=== PATIENT | male | born 1955 | race Caucasian/White ===

== ENCOUNTER 2021-04-28 14:14 | Inpatient (IN) ==
[2021-04-28] MEDS ORDERED: NITROGLYCERIN 2% OINTMENT 30GM TUBE EXT STA (14:34)
--- NOTE | 2021-04-28 14:39 | Emergency Department Note ---
Impression & Plan Substernal chest pain ED Provider Note INFORMANT: Patient ED PROVIDER(S): Thomas Alves MD CHIEF COMPLAINT: Chest pain PLAN: Disposition: Admitted Condition: Good Outpatient prescription management: none Referral: None MEDICAL DECISION MAKING: Patient presented with concerning story for chest pain. He had aspirin prior to coming to the ER. Nitropaste was applied. His ECG showed a sinus bradycardia with anterior T wave inversion. His laboratory testing including troponin were negative. Chest x-ray negative. The patient had a consultation with Dr. Jean of cardiology. He would like the hospitalist admit the patient and he is going to evaluate him for possible cardiac catheterization. Consultation was made with [facility] hospitalist service. The patient was admitted for further management. Triage Nursing notes reviewed and agree them. Vital Signs: reviewed and remarkable for no significant abnormalities Differential diagnosis: Cardiac ischemia, aortic dissection, pulmonary embolism, pneumothorax, pneumonia , pericarditis, myocarditis, esophageal rupture, GERD, cholecystitis, pancreatitis, musculoskeletal, as well as other pathologies. Diagnostics interpreted by me: ECG: Twelve-lead ECG reveals sinus bradycardia 59 bpm. Anterior T wave inversions. No ST elevation. No PACs or PVCs. Cardiac Monitoring: Cardiac monitoring ordered by me: The patient was placed on continuous cardiac monitoring and observed. It revealed a normal sinus rhythm at 60 beats per minute without ectopy or evidence of dysrhythmia. Imaging studies: Chest x-ray. Findings: A chest x-ray was performed and revealed no pneumothorax, effusion, infiltrate, pulmonary edema, free air under the diaphragm, or wide mediastinum. Impression: No acute disease. HPI: The patient is a 65 year old male who presents to the Emergency Room with complaints of substernal chest pain. This started about a month ago and is intermittent. The patient also notes the following associated symptoms, nausea, dry heaves, radiating to teeth and arms. The patient has been given asa today for relieving factors. Current pain is rated as 0/10. [place] [facility] [place] for a stress and echo was abnormal. Sent to ER for concerns of ACS. Pt denies LOC, headache, fevers, chills, diaphoresis, visual changes, neck pain, breathing difficulties, vomiting, abdominal pain, back pain, melena, heydi tochezia, urinary symptoms, numbness, weakness, lymphadenopathy, rash, or other complaints. ROS: See above HPI for pertinent positives & negatives. A total of 10 systems re viewed and were otherwise negative. PAST MEDICAL HISTORY:See Below , HTN PAST SURGICAL HISTORY:See Below, FAMILY HISTORY:See Below SOCIAL HISTORY:See Below, no tobacco HOME MEDICATIONS:See Below ALLERGIES:See Below VITALS:See Below PHYSICAL EXAMINATION: GENERAL: Awake, alert, well-appearing, in no distress HENT: Normocephalic, atraumatic. Oropharynx unremarkable. EYES: Normal conjunctiva. Sclera non-icteric. NECK: Inspection normal. Non-tender. Supple. No nuchal rigidity. FROM. No masses. RESPIRATORY: Clear to auscultation. No wheezes. No rales. Normal respiratory effort. CARDIAC: Normal rate. Normal rhythm. No murmurs. No rubs. Extremities warm and well perfused. Pulses equal. No JVD. GI: Soft, non-distended. No tenderness to palpation. No rebound or guarding. No masses. RECTAL: Deferred. MUSCULOSKELETAL: Atraumatic. Chest examination reveals no tenderness. The back is symmetrical on inspection without obvious abnormality. There is no CVA tenderness to palpation. No joint edema. LOWER EXTREMITIES: Calves are equal size bilaterally and non-tender. No edema. No discoloration. NEURO: Normal sensorium. No sensory or motor deficits noted. SKIN: No rash or jaundice noted. Thomas Alves MD Past Med/Surg History Medical History Dyslipidemia, goal LDL below 70 Family history of premature CAD GERD (gastroesophageal reflux disease) Mood disorder Tobacco use Surgical History (Updated 04/28/21 @ 18:03 by Nelly Asher PA-C) Carpal tunnel syndrome History of colonoscopy Family History Other Cancer Heart disease Social History (Updated 04/28/21 @ 18:04 by Nelly Asher PA-C) Smoking Status: Current every day smoker Tobacco Type: Smokeless Tobacco (Dip or Chew) Second Hand Exposure: No; Do You Dip or Chew Tobacco: Yes; Tobacco Cessation Education Requested by Patient: No Hx Alcohol Use: No (quit 6 mo ago ) Hx Substance Use: No Preferred Language: Luxembourger Communication Ability: Effective Health Economist Required: No Beliefs That Will Affect Care: None Current Living Situation: Spouse Other Information That Helps Us Care for You: No Feels Safe at Home: Yes Safety Concerns: Feels Safe At This Time Assistive Devices: None Allergies Allergies Allergy/AdvReac Type Severity Reaction Status Date / Time No Known Allergies Allergy Verified 04/28/21 16:15 Home Meds Home Medications Medication Instructions Recorded Confirmed citalopram 10 mg PO DAILY 04/28/21 04/28/21 omeprazole 40 mg PO DAILY 04/28/21 04/28/21 Previous Rx's Medication Instructions Recorded aspirin 81 mg PO QAM #0 tab 04/28/21 atorvastatin 80 mg PO QAM #0 tab 04/28/21 lisinopril 10 mg PO QAM #0 tab 04/28/21 metoprolol tartrate 12.5 mg PO BID #0 tab 04/28/21 Results & Data (ED) Vital Signs Vital Signs - 24 hr 04/28/21 14:22 04/28/21 14:46 04/28/21 15:00 Temperature 36.5 C Temperature Source Oral Pulse Rate 61 Pulse Rate [Left Finger] 76 Pulse Rhythm Regular Pulse Strength Normal Respiratory Rate 18 18 Respiratory Effort / Characteristics Non-Labored Spontaneous Respiratory Depth Normal Respiratory Pattern Regular Blood Pressure 173/94 H Blood Pressure [Left Arm] 150/76 H Blood Pressure Mean 120 Blood Pressure Mean [Left Arm] 100 Blood Pressure Position Lying Blood Pressure Position [Left Arm] Sitting Pulse Oximetry 96 97 98 Oxygen Delivery Method Room Air Room Air Sepsis Recent Fever Within 48 Hours No Sepsis New/Unexplained Change in Mental Status No Sepsis Action Taken by Nursing No Action Required Laboratory Data Result diagrams: 04/28/21 14:30 04/28/21 14:30 Lab Results 04/28/21 04/28/21 04/28/21 Range/Units 14:30 14:30 15:00 WBC 9.79 (4.8-10.8) K/uL RBC 4.89 (4.7-6.1) M/uL Hgb 14.6 (14.0-18.0) g/dL Hct 42.7 (42-52) % MCV 87.3 (80-100) fL MCH 29.9 (25-34) pg MCHC 34.2 (32-36) g/dL RDW Std Deviation 42.7 (36.4-46.3) fL RDW Coeff of Akin 13.4 (11.5-14.5) % Plt Count 252 (130-400) K/uL MPV 9.4 (7.4-10.4) fL Immature Gran % (Auto) 0.2 % Neut % (Auto) 74.2 % Lymph % (Auto) 14.5 % [place] % (Auto) 7.4 % Eos % (Auto) 3.4 % Baso % (Auto) 0.3 % Neut # (Auto) 7.27 H (1.4-6.5) K/uL Lymph # (Auto) 1.42 (1.2-3.4) K/uL [place] # (Auto) 0.72 H (0.11-0.59) K/uL Eos # (Auto) 0.33 (0-0.5) K/uL Baso # (Auto) 0.03 (0-0.2) K/uL Immature Gran # (Auto) 0.02 (0.00-0.02) K/uL APTT 24.7 (21.0-31.0) Seconds PTT Ratio 0.9 Sodium 142 (136-145) mmol/L Potassium 4.0 (3.5-5.1) mmol/L Chloride 112 H (98-107) mmol/L Carbon Dioxide 27 (21-32) mmol/L Anion Gap 4.0 (3-11) BUN 13 (7-18) mg/dl Creatinine 0.90 (0.6-1.4) mg/dl Est Cr Clr Drug Dosing 87.6 ml/min Est GFR ( Amer) 104.2 ml/min Est GFR (Non-Af Amer) 89.9 ml/min BUN/Creatinine Ratio 14.9 (10-20) Glucose 89 (70-99) mg/dl Calcium 9.0 (8.5-10.1) mg/dl Total Bilirubin 0.7 (0.2-1) mg/dl AST 19 (15-37) U/L ALT 36 (12-78) U/L Alkaline Phosphatase 65 (45-117) U/L Troponin I < 0.015 (0-0.045) ng/ml Total Protein 6.8 (6.4-8.2) gm/dl Albumin 3.7 (3.4-5.0) gm/dl Globulin 3.1 (2.5-4.0) gm/dl Albumin/Globulin Ratio 1.2 (0.9-2) Lipase 184 (73-393) U/L COVID-19 Eval Order SARS-CoV-2 (PCR) (Negative) 04/28/21 04/28/21 Range/Units 15:08 15:08 WBC (4.8-10.8) K/uL RBC (4.7-6.1) M/uL Hgb (14.0-18.0) g/dL Hct (42-52) % MCV (80-100) fL MCH (25-34) pg MCHC (32-36) g/dL RDW Std Deviation (36.4-46.3) fL RDW Coeff of Akin (11.5-14.5) % Plt Count (130-400) K/uL MPV (7.4-10.4) fL Immature Gran % (Auto) % Neut % (Auto) % Lymph % (Auto) % [place] % (Auto) % Eos % (Auto) % Baso % (Auto) % Neut # (Auto) (1.4-6.5) K/uL Lymph # (Auto) (1.2-3.4) K/uL [place] # (Auto) (0.11-0.59) K/uL Eos # (Auto) (0-0.5) K/uL Baso # (Auto) (0-0.2) K/uL Immature Gran # (Auto) (0.00-0.02) K/uL APTT (21.0-31.0) Seconds PTT Ratio Sodium (136-145) mmol/L Potassium (3.5-5.1) mmol/L Chloride (98-107) mmol/L Carbon Dioxide (21-32) mmol/L Anion Gap (3-11) BUN (7-18) mg/dl Creatinine (0.6-1.4) mg/dl Est Cr Clr Drug Dosing ml/min Est GFR ( Amer) ml/min Est GFR (Non-Af Amer) ml/min BUN/Creatinine Ratio (10-20) Glucose (70-99) mg/dl Calcium (8.5-10.1) mg/dl Total Bilirubin (0.2-1) mg/dl AST (15-37) U/L ALT (12-78) U/L Alkaline Phosphatase (45-117) U/L Troponin I (0-0.045) ng/ml Total Protein (6.4-8.2) gm/dl Albumin (3.4-5.0) gm/dl Globulin (2.5-4.0) gm/dl Albumin/Globulin Ratio (0.9-2) Lipase (73-393) U/L COVID-19 Eval Order Covid19 at [facility] SARS-CoV-2 (PCR) NEGATIVE (Negative) Administered Medications Discontinued Medications Atorvastatin Calcium (Atorvastatin 40 Mg Tab) 80 mg PO QAM RAMBO Stop: 05/28/21 16:14 Last Admin: 04/28/21 18:33 Dose: 80 mg Documented by: [id number] Heparin Sodium/Dextrose (Heparin Iv Adult Wt-Based Standard *No* Bolus Protocol) 1 ea IV Q1H RAMBO; Protocol Stop: 05/28/21 16:59 Last Admin: 04/28/21 18:42 Dose: Not Given Documented by: [id number] Heparin Sodium/Dextrose (Heparin Sodium/Dextrose) 25,000 units in 500 mls @ 26 mls/hr IV .[id number] RAMBO; Protocol Stop: 05/28/21 17:02 Last Admin: 04/28/21 17:41 Dose: 1,300 units/hr, 26 mls/hr Documented by: [id number] Cosigned by: [id number] Nitroglycerin (Nitroglycerin 2% Ointment 30gm Tube) 1 inch EXT NOW STA Stop: 04/28/21 14:35 Last Admin: 04/28/21 14:49 Dose: 1 inch Documented by: [id number] Imaging Data Radiologist's Impression: Chest X-Ray 04/28/21 14:22 SINGLE VIEW CHEST CLINICAL HISTORY: Atypical chest pain. FINDINGS: An AP, portable, upright chest radiograph is obtained. No prior studies are available for comparison at the time of dictation. The examination is degraded by portable technique and apical lordotic positioning. The cardiomediastinal silhouette is unremarkable noting atherosclerotic calcification of the thoracic aorta. The lungs and pleural spaces are clear. No pneumothorax is seen. The bony thorax is grossly intact. IMPRESSION: No active disease in the chest. ACT 112: Negative or not required by law. Electronically signed by: Chepe Clancy M.D. 04/28/2021 2:56 PM Discharge Plan Visit Data Chief Complaint: Cardiac Assessment Stated Complaint: CARDIAC ASSESSMENT ED Provider: Thomas Alves Discharge Problem: Substernal chest pain Patient Disposition: Admitted As Inpatient Discharge Instructions Interventions: ED Discharge Assessment Last Done: 04/28/21 16:09
[2021-04-28 14:41] LABS: Basophils # (auto) 0.03 K/uL (0-0.2); Basophils % (auto) 0.3 %; Eosinophils # (auto) 0.33 K/uL (0-0.5); Eosinophils % (auto) 3.4 %; Hematocrit (blood only) 42.7 % (42-52); Hemoglobin 14.6 g/dL (14.0-18.0); Immature Granulocytes # (auto) 0.02 K/uL (0.00-0.02); Immature Granulocytes % (auto) 0.2 %; Lymphocytes # (auto) 1.42 K/uL (1.2-3.4); Lymphocytes % (auto) 14.5 %; Mean Corpuscular Hemoglobin 29.9 pg (25-34); Mean Corpuscular Hgb Conc 34.2 g/dL (32-36); Mean Corpuscular Volume 87.3 fL (80-100); Mean Platelet Volume 9.4 fL (7.4-10.4); Monocytes # (auto) 0.72 K/uL (0.11-0.59); Monocytes % (auto) 7.4 %; Neutrophils # (auto) 7.27 K/uL (1.4-6.5); Neutrophils % (auto) 74.2 %; Platelet Count 252 K/uL (130-400); RDW Coefficient of Variation 13.4 % (11.5-14.5); RDW Standard Deviation 42.7 fL (36.4-46.3); Red Blood Count 4.89 M/uL (4.7-6.1); White Blood Count 9.79 K/uL (4.8-10.8)
--- NOTE | 2021-04-28 14:58 | XRay Report ---
SINGLE VIEW CHEST CLINICAL HISTORY: Atypical chest pain. FINDINGS: An AP, portable, upright chest radiograph is obtained. No prior studies are available for c omparison at the time of dictation. The examination is degraded by portable technique and apical dwaine dotic positioning. The cardiomediastinal silhouette is unremarkable noting atherosclerotic calcificat ion of the thoracic aorta. The lungs and pleural spaces are clear. No pneumothorax is seen. The bony thorax is grossly intact. IMPRESSION: No active disease in the chest. ACT 112: Negative or not required by law. Electronically signed by: Chpee Clancy M.D. 04/28/2021 2:56 PM
[2021-04-28 14:59] LABS: Alanine Aminotransferase 36 U/L (12-78); Albumin Level 3.7 gm/dl (3.4-5.0); Aspartate Aminotransferase 19 U/L (15-37); BUN Creatinine Ratio 14.9 (10-20); Blood Urea Nitrogen 13 mg/dl (7-18); Carbon Dioxide 27 mmol/L (21-32); Chloride 112 mmol/L (98-107); Creatinine Clr Calc Pharmacy 87.6 ml/min; Est GFR (African American) 104.2 ml/min; Est GFR (Non-African American) 89.9 ml/min; Glucose 89 mg/dl (70-99); Lipase 184 U/L (73-393); Sodium 142 mmol/L (136-145)
[2021-04-28 15:04] LABS: Albumin Globulin Ratio 1.2 (0.9-2); Alkaline Phosphatase 65 U/L (45-117); Bilirubin,Total 0.7 mg/dl (0.2-1); Globulin 3.1 gm/dl (2.5-4.0); Total Protein 6.8 gm/dl (6.4-8.2); Troponin I < 0.015 ng/ml (0-0.045)
[2021-04-28 15:22] LABS: Partial Thromboplastin Ratio 0.9; Partial Thromboplastin Time 24.7 Seconds (21.0-31.0)
[2021-04-28] MEDS ORDERED: fentaNYL citrate 100 MCG/2 ML VIAL ONE (15:53)
[2021-04-28] MEDS ORDERED: niCARdipine HCL INJ 2.5 MG/ML 10 ML AMP ONE (15:53)
[2021-04-28] MEDS ORDERED: HEPARIN (PORCINE) 1000 UNIT/ML 10 ML (CATH LAB USE ONLY) ONE (15:53)
[2021-04-28] MEDS ORDERED: MIDAZOLAM HCL 1 MG/ML 2ML VIAL ONE (15:53)
[2021-04-28] MEDS ORDERED: NITROGLYCERIN/D5W 100MCG/ML 20ML SYR ONE (15:54)
--- NOTE | 2021-04-28 16:08 | Cardiology Consultation ---
Date of Consultation April 28, 2021 Assessment & Plan (1) Unstable angina: I had a long discussion with the patient regarding his abnormal ECG and echocardiographic findings. Recommend further evaluation in urgent coronary angiography with left heart catheterization. Risk versus benefit of procedure discussed at length. Patient agreeable. He is a drug-eluting stent candidate. IV heparin will be administered during procedure. Continue aspirin and statin therapy. Add beta-nathalie and MIRIAN inhibitor post procedure. (2) Dyslipidemia, goal LDL below 70: Discontinue simvastatin in favor of high intensity statin therapy. (3) Family history of premature CAD: History of Present Illness Reason for Consultation: Unstable Angina Requesting Physician: Dr. Thomas Alves Attending Physician: Dr. Thomas Alves History of Present Illness [id number] oh patient presents to the outpatient cardiology clinic today chest discomfort. He was scheduled for exercise stress echocardiography. Resting images demonstrating the anterior wall motion abnormality. Estimated ejection fraction 50-54%. Patient reports episodes of chest discomfort dating back several weeks. Initial episode occurred while in the shower. Describes jaw and tooth discomfort radiating to his chest. No associated shortness of breath. Discomfort consistently reproducible with exertion. Occasional episodes of resting pain described as severe in nature reported. Self-medicating at home with Pepcid with little relief. Patient is currently pain-free. Twelve-lead ECG demonstrates biphasic T waves in the anterior leads. Initial troponin negative. Denies orthopnea, PND, or lower extremity edema. No palpitations, lightheadedness, dizziness, syncope, or near syncope. Reports family history of premature coronary disease involving his mother (age 40). Cardiac risk factors include dyslipidemia Home Medications Medication Instructions Recorded Confirmed Type cetirizine 10 mg PO DAILY 04/28/21 04/28/21 History citalopram 10 mg PO DAILY 04/28/21 04/28/21 History omeprazole 40 mg PO DAILY 04/28/21 04/28/21 History simvastatin 40 mg PO DAILY 04/28/21 04/28/21 History Patient History Social History Smoking Status: Never smoker Feels Safe at Home: Yes Review of Systems Review of Systems: All systems reviewed & are unremarkable except as noted in Subjective Physical Exam Constitutional: well developed and well nourished; no acute distress Respiratory: normal respiratory effort; no respiratory distress and no labored breathing Auscultation: lungs clear to auscultation bilaterally; breath sounds present, no diminished lung sounds, no crackles, no rales, no rhonchi and no wheezes Cardiovascular: Rate/Rhythm: regular rate and regular rhythm Heart Sounds: normal S1 and normal S2; no gallop, no murmur and no cardiac rub Vessels: no JVD Extremities: no edema Gastrointestinal (Abdomen): Inspection/Auscultation: abdomen normal to inspection and normal bowel sounds; abdomen not distended Percussion/Palpation: abdomen soft; abdomen nontender, no guarding and abdomen not rigid Neurologic: CN's II-XI intact bilaterally and moves all extremities; no focal motor deficits Motor/Sensory: no tremor Psychiatric: A+Ox3, euthymic affect Results & Data ([facility]) Vital Signs (Past 12 Hours) Vital Signs Temp Pulse Resp BP Pulse Ox 04/28/21 14:46 97 04/28/21 14:22 36.5 C 61 18 173/94 H 96
--- NOTE | 2021-04-28 16:10 | Pre Anesthesia Assessment ---
Date of Service April 28, 2021 Pre Sedation Assessment Vital Signs Temp Pulse Resp BP Pulse Ox 04/28/21 14:46 97 04/28/21 14:22 36.5 C 61 18 173/94 H 96 Cardiovascular RRR, no murmur, no edema no JVD Respiratory normal respiratory effort, lungs clear to auscultation Pre-Sedation Airway Assessment Smoking Status: Never smoker Mallampati Class: III ASA: ASA4 NPO Status Date of Last Intake of Fluids: 04/27/21 Date of Last Intake of Solid Food: 04/28/21 Procedure Planning Contraindications for Sedation: none Current Medications Reviewed: Yes Notes The planned sedation has been discussed with the patient. Informed Consent was obtained. I have identified the patient, determined the appropriateness of sedation and have assessed the patient immediately prior to the procedure. All medicine(s) and interventions are by my order.
[2021-04-28] MEDS ORDERED: ATORVASTATIN 40 MG TAB PO SCH (16:15)
[2021-04-28] MEDS ORDERED: NITROGLYCERIN 2% OINTMENT 30GM TUBE ONE (16:44)
--- NOTE | 2021-04-28 16:45 | Post Anesthesia Assessment ---
Date of Service April 28, 2021 Post Sedation Assessment Vital Signs Temp Pulse Pulse Resp BP BP Pulse Ox 04/28/21 15:00 76 18 150/76 H 98 04/28/21 14:46 97 04/28/21 14:22 36.5 C 61 18 173/94 H 96 Recovery Score Activity: Moves 4 extremities Respiration: Deep Breath/Cough Circulation: +/-20% PreAnes Value Consciousness: Fully Awake Oxygen Saturation: > 92% On Room Air Discharge Sedation Level of Care: Phase I Post Sedation Plan On clinical assessment, the patient appears to have tolerated the sedation without complications. Patient is recovering as anticipated. Patient will continue to be monitored by nursing and may be discharged when sedation discharge criteria are met per below protocol. Upon Completions of procedure up to 15 minutes continue every 5 minute vital signs and the P.A.R. score; then discharge to a Phase I or Fast Track to Phase II per the following guidelines: * Discharge Patient to appropriate Phase II area if PAR is 8 or greater or return to pre- procedure baseline. The post - procedure orders will be as directed. * If PAR score is less than 8 or not return to pre-procedure baseline then patient will follow Phase I monitoring till PAR is reached for Phase II. The Phase I may be done in procedure room or may call to secure a Phase I area. * If naloxone or flumazenil are used for reversal, hold in Phase I for continued monitoring from when last reversal dose was given for a minimum of 60 minutes or longer pending the nurse and/or physician discretion of patient condition before discharge to Phase II. Please call the Sedation Physician to re-evaluate and complete post-note for discharge to Phase II area. Do NOT discharge from procedure sedation or Phase 1 until post- sedation evaluation note is complete by procedure /sedation MD Sedation Discharge Instructions to be given to the patient at discharge to home.
--- NOTE | 2021-04-28 16:57 | Cardiac Catheterization ---
Cardiac Cath Procedure Full Procedure Date April 28, 2021 Pre-Procedure Diagnosis Pre-Procedure Diagnosis: Acute Coronary Syndrome and Cardiomyopathy AUC Score AUC Score: 8 Post-Procedure Diagnosis Post-Procedure Diagnosis: Severe CAD and Elevated Intracardiac Pressures Procedure(s) Performed Procedure(s) Performed: Coronary Angiography and Left Heart Cath Fly Rail Operator Edmundo Jean DO Forming Yardage Control Operator(s) Mickeyr DESKTOP TECHNICIAN Estimated Blood Loss Estimated Blood Loss: 5cc Medication(s) Medication(s): Fentanyl, Heparin, Lidocaine 1%, Nicardipine, Nitroglycerin and Versed Summary of Findings Severe distal left main stenosis extending to the ostial LAD and ostial left circumflex. Severe proximal LAD stenosis, 80% Severe proximal RCA stenosis, 80% Hemodynamics Rest Ao:: 119/72/96 Final Ao: 96/60/76 LV: 120/9/14 Recommendations Recommendations: CABG Specimens Specimens: None Radiation Exposure (mGy) 965 Contrast (mls) 55 Fluids (cc crystalloids) Fluids (cc crystalloids): 70 Nss Drains Drains: N/A Anesthesia Moderate sedation. Start 1617. End 1635. Sedation monior: Chance RASMUSSEN Procedural Complication(s) None Disposition Database Management Specialist Holding/Recovery I attest to the content of the Intraoperative Record and any orders documented therein. Any exceptions are noted below. ACC Data: Database Management Specialist Cardiac Status Clinical evaluation leading to the procedure CAD Presenation: Unstable angina Anginal Classification: CCS IV Cardiogenic Shock within 24 Hours: No Cardiac Arrest within 24 Hours: No Imaging Studies Past 6 Months: Yes Stress Studies Past 6 Months: No Coronary Anatomy Dominant: Co-Dominant Left Main (% Stenosis): Distal (80% extending to the ostium of the LAD and left circumflex.) LAD (% Stenosis): Ostial (99%), Proximal (80%) and Distal (Competitive flow in the apical LAD secondary to right to left collateralization from the Right acute marginal) D1 (% Stenosis): Ostial (99%, diminutive, 1 mm vessel) D2 (% Stenosis): Ostial (60%) Circumflex (% Stenosis): Mid (40%) OM1 (% Stenosis): Proximal (Bifurcating vessel with 30% stenosis of the inferior subbranch) L PL1 (% Stenosis): Mid (10% diffuse) L PL2 (% Stenosis): Mid (10% diffuse) L PDA (% Stenosis): Normal RCA (% Stenosis): Proximal (80%) R PDA (% Stenosis): Normal (Small, 1 mm vessel.) R PL1 (% Stenosis): Normal (1mm vessel) Ramus (% Stenosis): Ostial (80%, small vessel) Diagnostic Physicians Name: Edmundo Jean DO Status: Urgent Closure Device Percutaneous Entry Location: Radial Closure Device: Radial Band Recommendations: CABG Intraprocedure Events Significant Disection: No Perforation: No
[2021-04-28] MEDS ORDERED: Heparin IV Adult Wt-Based Standard *NO* Bolus Protocol IV SCH (17:00)
[2021-04-28] MEDS ORDERED: HEPARIN SODIUM/DEXTROSE 25,000 UNITS/500 ML BAG IV SCH (17:03)
[2021-04-28] MEDS ORDERED: ACETAMINOPHEN 325 MG TAB PO PRN (17:09)
[2021-04-28] MEDS ORDERED: ONDANSETRON INJ 2 MG/ML 2 ML VIAL IV PRN (17:09)
[2021-04-28] MEDS ORDERED: POLYETHYLENE (MIRALAX) 17 GM PACK PO PRN (17:09)
--- NOTE | 2021-04-28 17:09 | History & Physical Report ---
Date of Service April 28, 2021 Assessment & Plan (1) CAD, multiple vessel: (2) Unstable angina: This is a 65yo M with a PMH of tobacco use disorder and dyslipidemia who presents from outpatient cardiology clinic today chest discomfort and was found to have severe multivessel CAD on diagnostic cardiac catheterization and will be transferred to [facility] for cardiothoracic intervention. Scheduled for outpatient exercise stress echo today but resting imaging showed anterior wall motion abnormality Endorses recent pain a few weeks ago in jaw with radiation to chest, exertional, first attributed to acid reflux Evaluated by Dr. Jean who performed diagnostic cardiac catheterization, revealing multivessel CAD Will require ACLS ground transfer to [facility] for [place]G - has been accepted Continue IV heparin during transfer Continue aspirin and statin therapy. Beta-nathalie and MIRIAN inhibitor also added post procedure Currently resting comfortably in -, asymptomatic, updated and agreeable with plan to transfer (3) Dyslipidemia, goal LDL below 70: Continue atorvastatin (4) Tobacco use: Recommended cessation (5) Mood disorder: Continue Celexa DVT Ppx: IV heparin Code status: FULL PCP: Celia Dispo: Admitted to PCU with plans for ground transfer to [facility] Patient seen in collaboration with Dr. Vidal. Please see addendum. History of Present Illness Chief Complaint: CP Primary Care Provider: NO PCP This is a 65yo M with a PMH of tobacco use disorder and dyslipidemia who presents from outpatient cardiology clinic today chest discomfort. Was scheduled for exercise stress echo today but resting imaging showed anterior wall motion abnormality. Patient endorses pain a few weeks ago starting in jaw with radiation to chest. No associated shortness of breath. Pain seems to be exertional with some episodes also occurring at rest. Thought it was due to acid reflux and has been taking Pepcid at home prior to presenting in cardiology clinic today. Denies orthopnea, PND, or lower extremity edema. No lightheadedness, dizziness, near syncope, orthopnea, PND or BLE edema. Patient with history of dyslipidemia and tobacco use. Also endorses + family history of CAD (mom-age 40). Diagnostic cardiac catheterization revealed severe CAD and will require transfer to [facility] for cardiothoracic intervention. Patient started on IV heparin during procedure which will be continued during transfer. Started on aspirin and statin therapy. Beta-nathalie and MIRIAN inhibitor added post procedure. Patient seen and examined in 201-1. Feeling well post-cath. Denies any chest pain or SOB. Discussed plan for transfer to [facility]. Allergies Allergy/AdvReac Type Severity Reaction Status Date / Time No Known Allergies Allergy Verified 04/28/21 16:15 Home Medications Medication Instructions Recorded Confirmed Type cetirizine 10 mg PO DAILY 04/28/21 04/28/21 History citalopram 10 mg PO DAILY 04/28/21 04/28/21 History omeprazole 40 mg PO DAILY 04/28/21 04/28/21 History simvastatin 40 mg PO DAILY 04/28/21 04/28/21 History Past Med/Surg History Medical History Dyslipidemia, goal LDL below 70 Family history of premature CAD GERD (gastroesophageal reflux disease) Mood disorder Tobacco use Surgical History (Updated 04/28/21 @ 18:03 by Nelyl Asher PA-C) Carpal tunnel syndrome History of colonoscopy Family History Other Cancer Heart disease Social History (Updated 04/28/21 @ 18:04 by Nelly Asher PA-C) Smoking Status: Current every day smoker Tobacco Type: Smokeless Tobacco (Dip or Chew) Second Hand Exposure: No; Do You Dip or Chew Tobacco: Yes; Tobacco Cessation Education Requested by Patient: No Hx Alcohol Use: No (quit 6 mo ago ) Hx Substance Use: No Preferred Language: German Communication Ability: Effective Brand Recorder Required: No Beliefs That Will Affect Care: None Current Living Situation: Spouse Other Information That Helps Us Care for You: No Feels Safe at Home: Yes Safety Concerns: Feels Safe At This Time Assistive Devices: None Review of Systems Review of Systems: At least ten systems reviewed and negative except as noted in the HPI. Physical Exam Physical Exam: Please see Dr. Vidal's addendum for physical exam. Results & Data Results & Data ([facility]) Vital Signs (Past 12 Hours) Vital Signs Temp Pulse Pulse Resp BP BP Pulse Ox 04/28/21 16:45 49 L 16 150/83 H 98 04/28/21 15:00 76 18 150/76 H 98 04/28/21 14:46 97 04/28/21 14:22 36.5 C 61 18 173/94 H 96 Laboratory Results Short CBC 04/28/21 Range/Units 14:30 WBC 9.79 (4.8-10.8) K/uL Hgb 14.6 (14.0-18.0) g/dL Hct 42.7 (42-52) % Plt Count 252 (130-400) K/uL BMP 04/28/21 14:30 Sodium 142 Potassium 4.0 Chloride 112 H Carbon Dioxide 27 BUN 13 Creatinine 0.90 Glucose 89 Calcium 9.0 Cardiac Enzymes 04/28/21 Range/Units 14:30 Troponin I < 0.015 (0-0.045) ng/ml Liver Function 04/28/21 Range/Units 14:30 Total Bilirubin 0.7 (0.2-1) mg/dl AST 19 (15-37) U/L ALT 36 (12-78) U/L Alkaline Phosphatase 65 (45-117) U/L Albumin 3.7 (3.4-5.0) gm/dl Diagnostic Findings Chest X-Ray 04/28/21 14:22 SINGLE VIEW CHEST CLINICAL HISTORY: Atypical chest pain. FINDINGS: An AP, portable, upright chest radiograph is obtained. No prior studies are available for comparison at the time of dictation. The examination is degraded by portable technique and apical lordotic positioning. The cardiomediastinal silhouette is unremarkable noting atherosclerotic calcification of the thoracic aorta. The lungs and pleural spaces are clear. No pneumothorax is seen. The bony thorax is grossly intact. IMPRESSION: No active disease in the chest. ACT 112: Negative or not required by law. Electronically signed by: Chepe Clancy M.D. 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 He was noted to have anterior wall motion abnormality on echocardiogram and was sent to ED for cardiac catheterization. Please review HPI for complete details of presentation. Cardiac catheterization showed multivessel coronary artery disease--severe distal left main stenosis extending to the ostial LAD and ostial left circumflex, severe proximal LAD stenosis, severe proximal RCA stenosis. Patient was recommended to have CABG. Post cardiac catheterization patient is asymptomatic. Denies any chest pain, shortness of breath, dizziness, nausea, abdominal pain. On exam patient is moderately built and nourished, no apparent distress, normocephalic atraumatic, EOMI, PERRL, lungs-normal breath sounds, clear to auscultation, S1-S2,+ bradycardia, no murmur, no pedal edema, abdomen soft, nontender, normal bowel sounds, alert, awake, oriented, grossly no focal neurologic deficits. Patient is started on IV heparin post cardiac catheterization. For severe multivessel coronary artery disease, unstable angina. Continue aspirin, statin. Started on metoprolol 12.5 mg twice daily. Patient is planned for transfer to tertiary care facility for CABG. I personally reviewed the record. Patient is interviewed and examined at bedside. Patient's care is coordinated with Nelly Asher PA-C. Please refer to the documentation above for details of patient's presentation and for discussion of other issues.
--- NOTE | 2021-04-28 19:58 | Discharge Summary ---
Date of Service April 28, 2021 Admission HPI Per Admitting Provider This is a 65yo M with a PMH of tobacco use disorder and dyslipidemia who presents from outpatient cardiology clinic today chest discomfort. Was scheduled for exercise stress echo today but resting imaging showed anterior wall motion abnormality. Patient endorses pain a few weeks ago starting in jaw with radiation to chest. No associated shortness of breath. Pain seems to be exertional with some episodes also occurring at rest. Thought it was due to acid reflux and has been taking Pepcid at home prior to presenting in cardiology clinic today. Denies orthopnea, PND, or lower extremity edema. No lightheadedness, dizziness, near syncope, orthopnea, PND or BLE edema. Patient with history of dyslipidemia and tobacco use. Also endorses + family history of CAD (mom-age 40). Diagnostic cardiac catheterization revealed severe CAD and will require transfer to [facility] for cardiothoracic intervention. Patient started on IV heparin during procedure which will be continued during transfer. Started on aspirin and statin therapy. Beta-nathalie and MIRIAN inhibitor added post procedure. Patient seen and examined in 201-1. Feeling well post-cath. Denies any chest pain or SOB. Discussed plan for transfer to [facility]. Admission Exam Per Admitting Provider On exam patient is moderately built and nourished, no apparent distress, normocephalic atraumatic, EOMI, PERRL, lungs-normal breath sounds, clear to auscultation, S1-S2,+ bradycardia, no murmur, no pedal edema, abdomen soft, nontender, normal bowel sounds, alert, awake, oriented, grossly no focal neurologic deficits. Principal Diagnosis Multivessel CAD Unstable angina Discharge Data Allergies Allergy/AdvReac Type Severity Reaction Status Date / Time No Known Allergies Allergy Verified 04/28/21 16:15 Consultations 04/28/21 15:44 ED Decision to Admit Stat 04/28/21 17:45 Burn CD for patient Stat Procedures Performed Operation Date: 04/28/21 15:45 Actual Procedures s Cath, Left w/Cors Vent Grafts - Edmundo Jean DO p Cineradiography w/Routine Exam - Edmundo Jean DO CXR: No active disease in the chest. Cardiac catheterization Summary of Findings Severe distal left main stenosis extending to the ostial LAD and ostial left circumflex. Severe proximal LAD stenosis, 80% Severe proximal RCA stenosis, 80% Hemodynamics Rest Ao:: 119/72/96 Final Ao: 96/60/76 LV: 120/9/14 Recommendations Recommendations: CABG Ordered Studies 04/28/21 16:03 CL Cath Imgs for PACS use only Stat Hospital Course (1) CAD, multiple vessel: (2) Unstable angina: This is a 65yo M with a PMH of tobacco use disorder and dyslipidemia who presents from outpatient cardiology clinic today chest discomfort and was found to have severe multivessel CAD on diagnostic cardiac catheterization and will be transferred to [facility] for cardiothoracic intervention. Scheduled for outpatient exercise stress echo today but resting imaging showed anterior wall motion abnormality Endorses recent pain a few weeks ago in jaw with radiation to chest, exertional, first attributed to acid reflux Evaluated by Dr. Jean who performed diagnostic cardiac catheterization, revealing multivessel CAD Will require ACLS ground transfer to [facility] for CABG - has been accepted Continue IV heparin during transfer Continue aspirin and statin therapy. 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 He was noted to have anterior wall motion abnormality on echocardiogram and was sent to ED for cardiac catheterization. Please review HPI for complete details of presentation. Cardiac catheterization showed multivessel coronary artery disease--severe distal left main stenosis extending to the ostial LAD and ostial left circumflex, severe proximal LAD stenosis, severe proximal RCA stenosis. Patient was recommended to have CABG. Post cardiac catheterization patient is asymptomatic. Denies any chest pain, shortness of breath, dizziness, nausea, abdominal pain. On exam patient is moderately built and nourished, no apparent distress, normocephalic atraumatic, EOMI, PERRL, lungs-normal breath sounds, clear to auscultation, S1-S2,+ bradycardia, no murmur, no pedal edema, abdomen soft, nontender, normal bowel sounds, alert, awake, oriented, grossly no focal neurologic deficits. Patient is started on IV heparin post cardiac catheterization. For severe multivessel coronary artery disease, unstable angina. Continue aspirin, statin. Started on metoprolol 12.5 mg twice daily. Patient is planned for transfer to tertiary care facility for CABG. I personally reviewed the record. Patient is interviewed and examined at bedside. Patient's care is coordinated with Nelly Asher PA-C. Please refer to the documentation above for details of patient's presentation and for discussion of other issues. Total Time Total Time Spent Total Time Spent (In Minutes): 45 minutes Total Time Includes: Examination of the Patient, Discharge Planning, Medication Reconciliation, Communication With Other Providers and Other Discharge Plan Discharge Items Patient Disposition: Transfer Acute Care Hospital Reason For Visit: UNSTABLE ANGINA Discharge Diagnosis: Multivessel CAD, unstable angina Activity: Per Instructions section Exercise/Sports: Wait until after follow-up appointment Non-emergency contact: Primary Care Provider and Teller Manager Call non-emergency contact if: you have any medication questions, your symptoms worsen and your pain is concerning for you Follow-up/Referrals: PCP,NO [Primary Care Provider] - Diet: Heart Healthy Addtl Attending Provider Instructions: Follow up with Dr. Warner at [facility] for further instructions and management. Continue IV heparin until further instructions from door core assembler in [place]. Pending Studies at Discharge: No Stand-Alone Forms: My [facility] Skilled Items Patient informed of condition?: Yes DNR: No Discharge Level of Care: Other Communicable Disease: No Discharge Prognosis: Stable Lines: Peripheral IV Urinary Catheter: No Medications and DC Order Prescriptions: New metoprolol tartrate 25 mg Tablet 12.5 mg PO BID Qty: 0 RF: 0 atorvastatin 40 mg Tablet 80 mg PO QAM Qty: 0 RF: 0 Continued citalopram 10 mg tablet 10 mg PO DAILY RF: 0 omeprazole 40 mg capsule,delayed release(DR/EC) 40 mg PO DAILY RF: 0 Discontinued cetirizine 10 mg tablet 10 mg PO DAILY RF: 0 simvastatin 40 mg tablet 40 mg PO DAILY RF: 0 Discharge Orders: Discharge Order (Routine); Ordered 04/28/21 Ordered By: Nelly Asher Admission Data Admit Date/Time: 04/28/21 16:41 Attending Provider: Edmundo Jean Admit Provider: Vangala,Enrique K. Primary Care Provider: PCP,NO Other Providers: Enrique Vidal
[2021-04-28] MEDS ORDERED: METOPROLOL TARTRATE 25 MG TAB PO SCH (21:00)
--- NOTE | 2021-04-29 06:19 | Electrocardiogram Report ---
Test Reason : Blood Pressure : / mmHG Vent. Rate : 059 BPM Atrial Rate : 059 BPM P-R Int : 154 ms QRS Dur : 086 ms QT Int : 404 ms P-R-T Axes : 054 -02 085 degrees QTc Int : 399 ms Poor data quality, interpretation may be adversely affected Sinus bradycardia T wave abnormality, consider anterior ischemia Abnormal ECG No previous ECGs available Confirmed by Michael Leonardo ([id number]) on 04/29/2021 6:19:17 AM Referred By: Confirmed By:Michael Leonardo
[2021-04-29] MEDS ORDERED: ASPIRIN 81 MG ECTAB PO SCH (09:00)
[2021-04-29] MEDS ORDERED: lisinopril 10 MG TAB PO SCH (09:00)
== END 2021-04-28 20:12 | disposition short-term general hospital (02) | DRG 287 ==
LOC: ED 14:14 → CC 14:15 → 2E 16:41
DX: I10 Essential (primary) hypertension; Z82.49 Family history of ischemic heart disease and other diseases of the circulatory system; F39 Unspecified mood [affective] disorder; I20.0 Unstable angina; K21.9 Gastro-esophageal reflux disease without esophagitis; E78.5 Hyperlipidemia, unspecified

== ENCOUNTER 2021-05-19 11:38 | Inpatient (IN) ==
[2021-05-19] MEDS ORDERED: FAMOTIDINE 20MG IV PUSH 20 MG/5 ML SYR IV STA (12:15)
[2021-05-19 12:19] LABS: Basophils % (auto) 1.1 %; Eosinophils % (auto) 10.2 %; Hemoglobin 13.2 g/dL (14.0-18.0); Immature Granulocytes # (auto) 0.08 K/uL (0.00-0.02); Immature Granulocytes % (auto) 0.9 %; Lymphocytes # (auto) 1.87 K/uL (1.2-3.4); Lymphocytes % (auto) 21.1 %; Mean Corpuscular Hemoglobin 29.5 pg (25-34); Mean Corpuscular Volume 89.3 fL (80-100); Mean Platelet Volume 8.5 fL (7.4-10.4); Monocytes # (auto) 0.59 K/uL (0.11-0.59); Monocytes % (auto) 6.7 %; Neutrophils # (auto) 5.31 K/uL (1.4-6.5); Platelet Count 638 K/uL (130-400); RDW Coefficient of Variation 13.4 % (11.5-14.5); RDW Standard Deviation 43.9 fL (36.4-46.3); Red Blood Count 4.48 M/uL (4.7-6.1); White Blood Count 8.85 K/uL (4.8-10.8)
[2021-05-19 12:33] LABS: Partial Thromboplastin Time 25.8 Seconds (21.0-31.0); Prothrombin Time 10.5 Seconds (9.0-12.0)
--- NOTE | 2021-05-19 12:45 | XRay Report ---
XR chest 1V portable CLINICAL HISTORY: Atypical chest pain COMPARISON STUDY: 04/28/2021 FINDINGS: There is evidence for interval midline sternotomy. The heart is borderline enlarged. There is no failure. There are wispy left midlung zone opacities, likely atelectatic although an infectious /inflammatory process could appear similar[. There is no pneumothorax. There are no significant pleur al effusions. IMPRESSION: 1. Interval midline sternotomy 2. Interval development of wispy left midlung zone opacities, statistically atelectatic although an i nfectious/inflammatory processes could appear similar 3. No pneumothorax identified ACT 112: Negative or not required by law. Electronically signed by: Vinicio To M.D. 05/19/2021 12:44 PM
[2021-05-19 13:31] LABS: Alanine Aminotransferase 48 U/L (12-78); Albumin Level 3.3 gm/dl (3.4-5.0); Aspartate Aminotransferase 19 U/L (15-37); BUN Creatinine Ratio 15.4 (10-20); Blood Urea Nitrogen 16 mg/dl (7-18); Calcium 8.9 mg/dl (8.5-10.1); Carbon Dioxide 27 mmol/L (21-32); Chloride 108 mmol/L (98-107); Creatinine Clr Calc Pharmacy 70.6 ml/min; Est GFR (African American) 87.5 ml/min; Est GFR (Non-African American) 75.5 ml/min; Glucose 110 mg/dl (70-99); Lipase 306 U/L (73-393); Magnesium 2.3 mg/dl (1.8-2.4); Potassium 4.2 mmol/L (3.5-5.1); Sodium 139 mmol/L (136-145)
[2021-05-19 13:33] LABS: Albumin Globulin Ratio 0.8 (0.9-2); Alkaline Phosphatase 117 U/L (45-117); Bilirubin Direct < 0.1 mg/dl (0-0.2); Bilirubin,Total 0.3 mg/dl (0.2-1); Globulin 4.1 gm/dl (2.5-4.0); Phosphorus 2.7 mg/dl (2.5-4.9); Total Protein 7.4 gm/dl (6.4-8.2); Troponin I < 0.015 ng/ml (0-0.045)
--- NOTE | 2021-05-19 14:23 | Emergency Department Note ---
Impression & Plan Intermittent chest pain, S/P CABG x 2, CAD, multiple vessel ED Provider Note NAME: DILLON GONZALES AGE: 65 SEX: M ARRIVES VIA: Walk-In INFORMANT: [Patient][, ] ED PROVIDER(S): Madi Vega MD CHIEF COMPLAINT: chest pain PLAN: Disposition: Admit MEDICAL DECISION MAKING: The patient is a pleasant 65-year-old gentleman with a past medical history of tobacco use, hypertension, hyperlipidemia, CAD who is status post CABG at the end of April who presents to the emergency department with ongoing intermittent chest pain since last Sunday where he reports having had episodes with exertion such as his daily walk but then also reports pain at night that is pretty consistent almost nightly that is worse when he lies flat and he feels that he has pain in his jaw and teeth when this occurs. He reports he did have symptoms of acid reflux even prior to his CABG however he feels these episodes are more severe and somewhat different. He reports he has had a somewhat dry cough that is different from his more productive cough following surgery that has improved. He denies any shortness of breath, abdominal pain fevers, nausea, vomiting, diarrhea, urinary symptoms. He denies any chest pain at this time. On arrival the patient is in no acute distress, afebrile with stable vital signs. Exam is otherwise unremarkable. EKG without overt acute ischemia though does demonstrate anterior T wave inversions. Chest x-ray with nonspecific wispy left midlung zone opacities which are likely atelectasis given no report of fevers and no leukocytosis. WBC within normal limits./H 13.2/40.0 proximate to prior values in the setting of his recent surgery. Platelets 600Ks, nonspecific and likely reactive. Chemistry without metabolic acidosis. Electrolytes LFTs unremarkable. Troponin negative/undetectable. COVID-19 PCR is pending. I did perform a limited cardiac bedside ultrasound that showed no overt pericardial effusion. Given patient's recent CABG in the setting of new onset chest pain over the past week which while his description is mostly atypical in nature he has reported some exertional component. Thus, reasonable to admit the patient for further evaluation. The patient is agreement this plan. Case was discussed with Eugenio Crews PAC with Dr. Vidal, [facility] hospitalist, who will evaluate the patient for admission. Triage Nursing notes reviewed and agree them. Prior medical records reviewed Vital Signs: reviewed and remarkable for no significant abnormalities Differential diagnosis: Cardiac ischemia, aortic dissection, pulmonary embolism, pneumothorax, pneumonia, pericarditis, myocarditis, esophageal rupture, GERD, cholecystitis, pancreatitis, musculoskeletal, as well as other pathologies. ER treatment provided: See below. Diagnostics interpreted by me: ECG: Normal sinus rhythm, 62 bpm, ST abnormality, anterior T wave inversion, no overt ST elevation, QTc 428, cures 96. T wave inversions have evolved since April 28, 2021. Cardiac Monitoring: An order for continuous cardiac monitoring was placed and demonstrated Normal sinus rhythm, 62 bpm, no ectopy. Laboratory studies: See below. Imaging studies: See below. Consultation(s): Eugenio Crews PAC with Dr. Vidal, [facility] hospitalist, who will evaluate the patient for admission. HPI: The patient is a pleasant 65-year-old gentleman with a past medical history of tobacco use, hypertension, hyperlipidemia, CAD who is status post CABG at the end of April who presents to the emergency department with ongoing intermittent chest pain since last Sunday where he reports having had episodes with exertion such as his daily walk but then also reports pain at night that is pretty consistent almost nightly that is worse when he lies flat and he feels that he has pain in his jaw and teeth when this occurs. He reports he did have symptoms of acid reflux even prior to his CABG however he feels these episodes are more severe and somewhat different. He reports he has had a somewhat dry cough that is different from his more productive cough following surgery that has improved. He denies any shortness of breath, abdominal pain fevers, nausea, vomiting, di arrhea, urinary symptoms. He denies any chest pain at this time. ROS: See above HPI for pertinent positives & negatives. A total of 10 systems reviewed and were otherwise negative. PAST MEDICAL HISTORY:See below. PAST SURGICAL HISTORY:See below. FAMILY HISTORY:See below. SOCIAL HISTORY:See below. HOME MEDICATIONS:See below. ALLERGIES:See below. VITALS:See below. PHYSICAL EXAMINATION: GENERAL: Awake, alert, fatigued but well-appearing, in no distress HENT: Normocephalic, atraumatic. Oropharynx unremarkable. EYES: Normal conjunctiva. Sclera non-icteric. NECK: Supple. No nuchal rigidity. FROM. No JVD. RESPIRATORY: Clear to auscultation. CARDIAC: Regular rate, normal rhythm. Extremities warm and well perfused. Pulses equal. ABDOMEN: Soft, non-distended. No tenderness to palpation. No rebound or guarding. No masses. RECTAL: Deferred. MUSCULOSKELETAL: Chest examination reveals no tenderness. The back is symmetrical on inspection without obvious abnormality. There is no CVA tenderness to palpation. No joint edema. LOWER EXTREMITIES: Calves are equal size bilaterally and non-tender. No edema. No discoloration. NEURO: Normal sensorium. No sensory or motor deficits noted. SKIN: Post CABG incision sites clean dry and intact. No rash or jaundice noted. Madi Vega MD Past Med/Surg History Medical History Dyslipidemia, goal LDL below 70 Family history of premature CAD GERD (gastroesophageal reflux disease) Mood disorder Tobacco use Surgical History Carpal tunnel syndrome History of colonoscopy S/P CABG x 2 Family History Other Cancer Heart disease Social History Smoking Status: Former smoker Tobacco Type: Cigarettes and Smokeless Tobacco (Dip or Chew) Second Hand Exposure: No; Do You Dip or Chew Tobacco: Yes; Tobacco Cessation Education Requested by Patient: No Hx Alcohol Use: Yes Alcohol type: hard liquor Hx Substance Use: No Preferred Language: Senegalese Communication Ability: Effective Cured Meats Supervisor Required: No Beliefs That Will Affect Care: None Current Living Situation: Spouse Feels Safe at Home: Yes Safety Concerns: Feels Safe At This Time Assistive Devices: None Allergies Allergies Allergy/AdvReac Type Severity Reaction Status Date / Time No Known Allergies Allergy Verified 05/19/21 14:57 Home Meds Home Medications Medication Instructions Recorded Confirmed citalopram 10 mg tablet 10 mg PO PM 04/28/21 05/19/21 omeprazole 40 mg capsule,delayed 40 mg PO QAM 04/28/21 05/19/21 release acetaminophen 500 mg tablet 1,000 mg PO Q6H PRN 05/19/21 05/19/21 (Tylenol Extra Strength) amoxicillin 875 mg-potassium 1 tab PO BID 05/19/21 05/19/21 clavulanate 125 mg tablet aspirin 81 mg tablet,delayed 81 mg PO DAILY 05/19/21 05/19/21 release cetirizine 10 mg tablet 10 mg PO DAILY 05/19/21 05/19/21 clopidogrel 75 mg tablet 75 mg PO PM 05/19/21 05/19/21 docusate sodium 100 mg capsule 100 mg PO BID 05/19/21 05/19/21 furosemide 40 mg tablet 40 mg PO QAM 05/19/21 05/19/21 metoprolol tartrate 25 mg tablet 25 mg PO BID 05/19/21 05/19/21 oxycodone 5 mg tablet 5 mg PO Q4H PRN 05/19/21 05/19/21 potassium chloride 10 mEq 10 meq PO DAILY 05/19/21 05/19/21 tablet,extended release simvastatin 40 mg tablet 40 mg PO PM 05/19/21 05/19/21 Results & Data (ED) Vital Signs Vital Signs - 24 hr 05/19/21 11:40 05/19/21 11:55 05/19/21 11:59 Temperature 36.8 C Temperature Source Temporal Artery Scan Pulse Rate 67 70 Pulse Rate from SpO2 Sensor Pulse Rhythm Respiratory Rate 18 22 Respiratory Effort / Characteristics Non-Labored Spontaneous Respiratory Depth Normal Respiratory Pattern Regular Blood Pressure 124/80 Blood Pressure Mean 94 Blood Pressure Position Sitting Pulse Oximetry 99 99 Oxygen Delivery Method Room Air Room Air Sepsis Recent Fever Within 48 Hours No Sepsis New/Unexplained Change in Mental Status N/A Sepsis Action Taken by Nursing No Action Required 05/19/21 12:00 05/19/21 12:15 05/19/21 12:21 Temperature Temperature Source Pulse Rate 65 63 60 Pulse Rate from SpO2 Sensor 66 62 Pulse Rhythm Regular Respiratory Rate 19 21 18 Respiratory Effort / Characteristics Respiratory Depth Respiratory Pattern Blood Pressure 114/80 129/87 Blood Pressure Mean 91 101 Blood Pressure Position Pulse Oximetry 98 99 99 Oxygen Delivery Method Room Air Room Air Room Air Sepsis Recent Fever Within 48 Hours Sepsis New/Unexplained Change in Mental Status Sepsis Action Taken by Nursing 05/19/21 12:30 05/19/21 12:45 05/19/21 13:00 Temperature Temperature Source Pulse Rate 57 L 60 58 L Pulse Rate from SpO2 Sensor 56 L 61 57 L Pulse Rhythm Respiratory Rate 17 24 20 Respiratory Effort / Characteristics Respiratory Depth Respiratory Pattern Blood Pressure 121/77 127/76 115/75 Blood Pressure Mean 91 93 88 Blood Pressure Position Pulse Oximetry 98 98 99 Oxygen Delivery Method Room Air Room Air Room Air Sepsis Recent Fever Within 48 Hours Sepsis New/Unexplained Change in Mental Status Sepsis Action Taken by Nursing 05/19/21 13:15 05/19/21 13:30 05/19/21 13:45 Temperature Temperature Source Pulse Rate 55 L 58 L Pulse Rate from SpO2 Sensor 55 L 58 L Pulse Rhythm Respiratory Rate 18 21 Respiratory Effort / Characteristics Respiratory Depth Respiratory Pattern Blood Pressure 112/68 125/83 108/72 Blood Pressure Mean 82 97 84 Blood Pressure Position Pulse Oximetry 99 98 Oxygen Delivery Method Room Air Room Air Sepsis Recent Fever Within 48 Hours Sepsis New/Unexplained Change in Mental Status Sepsis Action Taken by Nursing 05/19/21 14:15 05/19/21 14:30 05/19/21 14:45 Temperature Temperature Source Pulse Rate 58 L 54 L Pulse Rate from SpO2 Sensor 60 53 L 52 L Pulse Rhythm Respiratory Rate 22 17 16 Respiratory Effort / Characteristics Respiratory Depth Respiratory Pattern Blood Pressure 114/71 122/70 105/62 Blood Pressure Mean 85 87 76 Blood Pressure Position Pulse Oximetry 98 98 97 Oxygen Delivery Method Room Air Room Air Room Air Sepsis Recent Fever Within 48 Hours Sepsis New/Unexplained Change in Mental Status Sepsis Action Taken by Nursing 05/19/21 15:00 05/19/21 15:15 05/19/21 15:30 Temperature Temperature Source Pulse Rate 53 L Pulse Rate from SpO2 Sensor 54 L 53 L 53 L Pulse Rhythm Respiratory Rate 18 20 18 Respiratory Effort / Characteristics Respiratory Depth Respiratory Pattern Blood Pressure 105/67 120/71 100/66 Blood Pressure Mean 79 87 77 Blood Pressure Position Pulse Oximetry 97 97 98 Oxygen Delivery Method Room Air Room Air Room Air Sepsis Recent Fever Within 48 Hours Sepsis New/Unexplained Change in Mental Status Sepsis Action Taken by Nursing 05/19/21 15:45 05/19/21 16:00 05/19/21 16:15 Temperature Temperature Source Pulse Rate 54 L 55 L 57 L Pulse Rate from SpO2 Sensor 53 L 56 L 58 L Pulse Rhythm Respiratory Rate 21 21 14 Respiratory Effort / Characteristics Respiratory Depth Respiratory Pattern Blood Pressure 120/73 123/75 132/79 Blood Pressure Mean 88 91 96 Blood Pressure Position Pulse Oximetry 99 99 99 Oxygen Delivery Method Room Air Room Air Room Air Sepsis Recent Fever Within 48 Hours Sepsis New/Unexplained Change in Mental Status Sepsis Action Taken by Nursing 05/19/21 16:31 Temperature Temperature Source Pulse Rate 64 Pulse Rate from SpO2 Sensor 63 Pulse Rhythm Respiratory Rate 22 Respiratory Effort / Characteristics Respiratory Depth Respiratory Pattern Blood Pressure 128/94 Blood Pressure Mean 105 Blood Pressure Position Pulse Oximetry 100 Oxygen Delivery Method Room Air Sepsis Recent Fever Within 48 Hours Sepsis New/Unexplained Change in Mental Status Sepsis Action Taken by Nursing Laboratory Data Attestation: I reviewed the patient's lab results. Result diagrams: 05/19/21 12:02 05/19/21 12:02 Lab Results 05/19/21 05/19/21 05/19/21 Range/Units 12:02 12:02 12:02 WBC 8.85 (4.8-10.8) K/uL RBC 4.48 L (4.7-6.1) M/uL Hgb 13.2 L (14.0-18.0) g/dL Hct 40.0 L (42-52) % MCV 89.3 (80-100) fL MCH 29.5 (25-34) pg MCHC 33.0 (32-36) g/dL RDW Std Deviation 43.9 (36.4-46.3) fL RDW Coeff of Akni 13.4 (11.5-14.5) % Plt Count 638 H (130-400) K/uL MPV 8.5 (7.4-10.4) fL Immature Gran % (Auto) 0.9 % Neut % (Auto) 60.0 % Lymph % (Auto) 21.1 % [place] % (Auto) 6.7 % Eos % (Auto) 10.2 % Baso % (Auto) 1.1 % Neut # (Auto) 5.31 (1.4-6.5) K/uL Lymph # (Auto) 1.87 (1.2-3.4) K/uL [place] # (Auto) 0.59 (0.11-0.59) K/uL Eos # (Auto) 0.90 H (0-0.5) K/uL Baso # (Auto) 0.10 (0-0.2) K/uL Immature Gran # (Auto) 0.08 H (0.00-0.02) K/uL PT 10.5 (9.0-12.0) Seconds INR 1.0 (0.9-1.1) APTT 25.8 (21.0-31.0) Seconds PTT Ratio 1.0 Sodium 139 (136-145) mmol/L Potassium 4.2 (3.5-5.1) mmol/L Chloride 108 H (98-107) mmol/L Carbon Dioxide 27 (21-32) mmol/L Anion Gap 4.0 (3-11) BUN 16 (7-18) mg/dl Creatinine 1.04 (0.6-1.4) mg/dl Est Cr Clr Drug Dosing 70.6 ml/min Est GFR ( Amer) 87.5 ml/min Est GFR (Non-Af Amer) 75.5 ml/min BUN/Creatinine Ratio 15.4 (10-20) Glucose 110 H (70-99) mg/dl Calcium 8.9 (8.5-10.1) mg/dl Phosphorus 2.7 (2.5-4.9) mg/dl Magnesium 2.3 (1.8-2.4) mg/dl Total Bilirubin 0.3 (0.2-1) mg/dl Direct Bilirubin < 0.1 (0-0.2) mg/dl AST 19 (15-37) U/L ALT 48 (12-78) U/L Alkaline Phosphatase 117 (45-117) U/L Troponin I < 0.015 (0-0.045) ng/ml Total Protein 7.4 (6.4-8.2) gm/dl Albumin 3.3 L (3.4-5.0) gm/dl Globulin 4.1 H (2.5-4.0) gm/dl Albumin/Globulin Ratio 0.8 L (0.9-2) Lipase 306 (73-393) U/L Procalcitonin (0-0.5) ng/ml COVID-19 Eval Order SARS-CoV-2 (PCR) (Negative) 05/19/21 05/19/21 05/19/21 Range/Units 12:02 12:20 12:20 WBC (4.8-10.8) K/uL RBC (4.7-6.1) M/uL Hgb (14.0-18.0) g/dL Hct (42-52) % MCV (80-100) fL MCH (25-34) pg MCHC (32-36) g/dL RDW Std Deviation (36.4-46.3) fL RDW Coeff of Akin (11.5-14.5) % Plt Count (130-400) K/uL MPV (7.4-10.4) fL Immature Gran % (Auto) % Neut % (Auto) % Lymph % (Auto) % [place] % (Auto) % Eos % (Auto) % Baso % (Auto) % Neut # (Auto) (1.4-6.5) K/uL Lymph # (Auto) (1.2-3.4) K/uL [place] # (Auto) (0.11-0.59) K/uL Eos # (Auto) (0-0.5) K/uL Baso # (Auto) (0-0.2) K/uL Immature Gran # (Auto) (0.00-0.02) K/uL PT (9.0-12.0) Seconds INR (0.9-1.1) APTT (21.0-31.0) Seconds PTT Ratio Sodium (136-145) mmol/L Potassium (3.5-5.1) mmol/L Chloride (98-107) mmol/L Carbon Dioxide (21-32) mmol/L Anion Gap (3-11) BUN (7-18) mg/dl Creatinine (0.6-1.4) mg/dl Est Cr Clr Drug Dosing ml/min Est GFR ( Amer) ml/min Est GFR (Non-Af Amer) ml/min BUN/Creatinine Ratio (10-20) Glucose (70-99) mg/dl Calcium (8.5-10.1) mg/dl Phosphorus (2.5-4.9) mg/dl Magnesium (1.8-2.4) mg/dl Total Bilirubin (0.2-1) mg/dl Direct Bilirubin (0-0.2) mg/dl AST (15-37) U/L ALT (12-78) U/L Alkaline Phosphatase (45-117) U/L Troponin I (0-0.045) ng/ml Total Protein (6.4-8.2) gm/dl Albumin (3.4-5.0) gm/dl Globulin (2.5-4.0) gm/dl Albumin/Globulin Ratio (0.9-2) Lipase (73-393) U/L Procalcitonin < 0.05 (0-0.5) ng/ml COVID-19 Eval Order Covid19 at [facility] SARS-CoV-2 (PCR) NEGATIVE (Negative) Administered Medications Aspirin (Aspirin 81 Mg Ectab) 81 mg PO PM RAMBO Stop: 06/18/21 20:59 Last Admin: 05/19/21 22:17 Dose: 81 mg Documented by: [id number] Citalopram Hydrobromide (Citalopram 20 Mg Tab) 10 mg PO PM RAMBO Stop: 06/18/21 20:59 Last Admin: 05/19/21 22:21 Dose: 10 mg Documented by: [id number] Clopidogrel Bisulfate (Clopidogrel Bisulfate 75 Mg Tab) 75 mg PO PM RAMBO Stop: 06/18/21 20:59 Last Admin: 05/19/21 22:25 Dose: 75 mg Documented by: [id number] Docusate Sodium (Docusate Sodium 100 Mg Cap) 100 mg PO BID RAMBO Stop: 06/18/21 21:14 Last Admin: 05/19/21 22:26 Dose: Not Given Documented by: [id number] Doxycycline Hyclate (Doxycycline Hyclate 100 Mg Cap) 100 mg PO BID RAMBO Stop: 05/26/21 20:59 Last Admin: 05/19/21 23:09 Dose: 100 mg Documented by: [id number] Famotidine (Famotidine 10 Mg Tablet) 10 mg PO BID RAMBO Stop: 06/18/21 20:59 Last Admin: 05/19/21 22:28 Dose: 10 mg Documented by: [id number] Heparin Sodium (Porcine) (Heparin Sod 5,000 Unit/0.5 Ml Vial) 5,000 units SQ Q8 RAMBO Stop: 06/18/21 21:59 Last Admin: 05/19/21 22:27 Dose: Not Given Documented by: [id number] Metoprolol Tartrate (Metoprolol Tartrate 25 Mg Tab) 25 mg PO BID RAMBO Stop: 06/18/21 20:59 Last Admin: 05/19/21 22:27 Dose: 25 mg Documented by: [id number] Discontinued Medications Ceftriaxone Sodium (Ceftriaxone Sodium 2000mg/70ml D5w) Confirm Administered Dose 2,000 mg IV .STK-MED ONE Stop: 05/19/21 17:46 Last Admin: 05/19/21 17:57 Dose: Not Given Documented by: [id number] Famotidine (Pepcid 20mg Iv Push) 20 mg in 5 mls @ 2.5 mls/min IV NOW STA Stop: 05/19/21 12:16 Last Admin: 05/19/21 12:20 Dose: 2.5 mls/min Documented by: [id number] Ceftriaxone Sodium 2,000 mg/ (Dextrose) 70 mls @ 100 mls/hr IV NOW STA; Protocol Stop: 05/19/21 18:14 Last Infusion: 05/19/21 18:56 Dose: 0 mls/hr Documented by: [id number] Admin: 05/19/21 17:57 Dose: 100 mls/hr Documented by: [id number] Imaging Data Radiologist's Impression: Chest X-Ray 05/19/21 12:08 XR chest 1V portable CLINICAL HISTORY: Atypical chest pain COMPARISON STUDY: 04/28/2021 FINDINGS: There is evidence for interval midline sternotomy. The heart is borderline enlarged. There is no failure. There are wispy left midlung zone opacities, likely atelectatic although an infectious/inflammatory process could appear similar[. There is no pneumothorax. There are no significant pleural effusions. IMPRESSION: 1. Interval midline sternotomy 2. Interval development of wispy left midlung zone opacities, statistically atel ectatic although an infectious/inflammatory processes could appear similar 3. No pneumothorax identified ACT 112: Negative or not required by law. Electronically signed by: Vinicio To M.D. 05/19/2021 12:44 PM Discharge Plan Visit Data Chief Complaint: Chest Pain Stated Complaint: HEART BURN, ARM, TEETH PAIN, POST BYPASS ED Provider: Madi Vega Discharge Problem: Intermittent chest pain, S/P CABG x 2, CAD, multiple vessel Patient Disposition: Admitted As Inpatient Discharge Instructions Interventions: ED Discharge Assessment Last Done: 05/19/21 20:11
--- NOTE | 2021-05-19 16:49 | Electrocardiogram Report ---
Test Reason : Blood Pressure : / mmHG Vent. Rate : 062 BPM Atrial Rate : 062 BPM P-R Int : 120 ms QRS Dur : 096 ms QT Int : 422 ms P-R-T Axes : 060 -02 114 degrees QTc Int : 428 ms Normal sinus rhythm Possible Left atrial enlargement Abnormal ECG When compared with ECG of 28-APR-2021 14:29, Inverted T waves have replaced nonspecific T wave abnormality in Lateral leads Confirmed by Phil Banda ([id number]) on 05/19/2021 4:49:32 PM Referred By: REFERRED SELF Confirmed By:Maxx Banda
--- NOTE | 2021-05-19 17:01 | History & Physical Report ---
Date of Service May 19, 2021 Assessment & Plan (1) Chest pain: (2) CAD, multiple vessel: (3) S/P CABG x 2: Plan: This is a 65yo M with a PMH of CAD with recent 2vCABG on 05/02/21 at [facility], history of tobacco use and other medical problems listed below presenting with intermittent CP x 4 days. Recent 2v CABG at [facility] 05/02/21 Intermittent episodes of CP over past 4 days - chest pain free since 0400 this morning EKG with nonspecific ST and T wave abnormality, consider anterolateral ischemia. When compared with EKG from April, inverted T waves have replaced nonspecific T wave abnormality in lateral leads Initial troponin negative CXR with interval midline sternotomy. Interval development of wispy left midlung zone opacities, statistically atelectatic although an infectious/inflammatory processes could appear similar Trend troponin, monitor on telemetry. Consider addition of IV heparin if patient develops CP or troponin elevation 2D echo, cardiology consult (4) Pneumonia: Plan: Recent sinus congestion, has been on Augmentin for 2 days CXR with interval development of wispy left midlung zone opacities, statistically atelectatic although an infectious/inflammatory processes could a ppear similar Afebrile, no leukocytosis, procal wnl, lactate wnl Starting empiric Rocephin and doxy CT chest pending for better visualization (5) Mood disorder: Plan: Continue Celexa (6) Dyslipidemia, goal LDL below 70: Plan: Continue atorvastatin (7) Tobacco use: Plan: Recent cessation DVT Ppx: SQ heparin for now Code status: FULL PCP: Celia Dispo: Admitted to PCU Patient seen in collaboration with Dr. Vidal. Please see addendum. History of Present Illness Chief Complaint: chest pain Primary Care Provider: Eva Patino PA-C This is a 65yo M with a PMH of CAD with recent 2vCABG on 05/02/21 at [facility], history of tobacco use and other medical problems listed below presenting with intermittent CP x 4 days. Was discharged home from [facility] on 04/28/21 and had been feeling well up until a few days ago, when he began to feel more fatigued and has been sleeping more during the day. Endorses intermittent chest pain over the past week both at rest and while walking x 4 days. Episodes start with pain in teeth followed by tightness in chest with radiation to bilateral arms. Episodes last for approximately 5 minutes. Associated with dry cough. Longest epsisode occurred at 0400 this morning and woke patient from sleep. Pain was similar in character but lasted 15 minutes. Took an oxycodone and was able to fall back asleep. Pain has not recurred since. Chest pain is exacerbated when lying flat. Endorsing sinus pain and congestion. Started on Augmentin 2 days ago for sinus congestion. Denies fevers. No lightheadedness, visual changes, palpitations, SOB, nausea, vomiting, abdominal pain, dysuria or constipation. No redness, warmth or drainage around healing incisions. Endorsing diarrhea for last day but no episodes since early this morning. Taking all medications as prescribed. Allergies Allergy/AdvReac Type Severity Reaction Status Date / Time No Known Allergies Allergy Verified 05/19/21 14:57 Home Medications Medication Instructions Recorded Confirmed Type citalopram 10 mg tablet 10 mg PO PM 04/28/21 05/19/21 History omeprazole 40 mg capsule,delayed 40 mg PO QAM 04/28/21 05/19/21 History release acetaminophen 500 mg tablet 1,000 mg PO Q6H PRN 05/19/21 05/19/21 History (Tylenol Extra Strength) amoxicillin 875 mg-potassium 1 tab PO BID 05/19/21 05/19/21 History clavulanate 125 mg tablet aspirin 81 mg tablet,delayed 81 mg PO DAILY 05/19/21 05/19/21 History release cetirizine 10 mg tablet 10 mg PO DAILY 05/19/21 05/19/21 History clopidogrel 75 mg tablet 75 mg PO PM 05/19/21 05/19/21 History docusate sodium 100 mg capsule 100 mg PO BID 05/19/21 05/19/21 History furosemide 40 mg tablet 40 mg PO QAM 05/19/21 05/19/21 History metoprolol tartrate 25 mg tablet 25 mg PO BID 05/19/21 05/19/21 History oxycodone 5 mg tablet 5 mg PO Q4H PRN 05/19/21 05/19/21 History potassium chloride 10 mEq 10 meq PO DAILY 05/19/21 05/19/21 History tablet,extended release simvastatin 40 mg tablet 40 mg PO PM 05/19/21 05/19/21 History Past Med/Surg History Medical History Dyslipidemia, goal LDL below 70 Family history of premature CAD GERD (gastroesophageal reflux disease) Mood disorder Tobacco use Surgical History (Updated 05/19/21 @ 17:59 by Nelly Asher PA-C) Carpal tunnel syndrome History of colonoscopy S/P CABG x 2 Family History Other Cancer Heart disease Social History Smoking Status: Former smoker Tobacco Type: Cigarettes and Smokeless Tobacco (Dip or Chew) Second Hand Exposure: No; Hx Alcohol Use: No (quit 6 mo ago ) Hx Substance Use: No Preferred Language: Stateless Communication Ability: Effective Elementary E[employer] Teacher Required: No Beliefs That Will Affect Care: None Current Living Situation: Spouse Feels Safe at Home: Yes Assistive Devices: None Review of Systems Review of Systems: At least ten systems reviewed and negative except as noted in the HPI. Physical Exam Physical Exam: Please see Dr. Vidal's addendum for physical exam details. Results & Data Results & Data ([facility]) Vital Signs (Past 12 Hours) Vital Signs Temp Pulse Resp BP Pulse Ox 05/19/21 14:45 16 105/62 97 05/19/21 14:30 54 L 17 122/70 98 05/19/21 14:15 58 L 22 114/71 98 05/19/21 13:45 58 L 21 108/72 98 05/19/21 13:30 125/83 05/19/21 13:15 55 L 18 112/68 99 05/19/21 13:00 58 L 20 115/75 99 05/19/21 12:45 60 24 127/76 98 05/19/21 12:30 57 L 17 121/77 98 05/19/21 12:21 60 18 99 05/19/21 12:15 63 21 129/87 99 05/19/21 12:00 65 19 114/80 98 05/19/21 11:59 99 05/19/21 11:55 70 22 05/19/21 11:40 36.8 C 67 18 124/80 99 Laboratory Results Short CBC 05/19/21 Range/Units 12:02 WBC 8.85 (4.8-10.8) K/uL Hgb 13.2 L (14.0-18.0) g/dL Hct 40.0 L (42-52) % Plt Count 638 H (130-400) K/uL BMP 05/19/21 12:02 Sodium 139 Potassium 4.2 Chloride 108 H Carbon Dioxide 27 BUN 16 Creatinine 1.04 Glucose 110 H Calcium 8.9 Cardiac Enzymes 05/19/21 Range/Units 12:02 Troponin I < 0.015 (0-0.045) ng/ml Liver Function 05/19/21 Range/Units 12:02 Total Bilirubin 0.3 (0.2-1) mg/dl Direct Bilirubin < 0.1 (0-0.2) mg/dl AST 19 (15-37) U/L ALT 48 (12-78) U/L Alkaline Phosphatase 117 (45-117) U/L Albumin 3.3 L (3.4-5.0) gm/dl Diagnostic Findings Chest X-Ray 05/19/21 12:08 XR chest 1V portable CLINICAL HISTORY: Atypical chest pain COMPARISON STUDY: 04/28/2021 FINDINGS: There is evidence for interval midline sternotomy. The heart is borderline enlarged. There is no failure. There are wispy left midlung zone opacities, likely atelectatic although an infectious/inflammatory process could appear similar[. There is no pneumothorax. There are no significant pleural effusions. IMPRESSION: 1. Interval midline sternotomy 2. Interval development of wispy left midlung zone opacities, statistically atelectatic although an infectious/inflammatory processes could appear similar 3. No pneumothorax identified ACT 112: Negative or not required by law. Electronically signed by: Vinicio To M.D. 05/19/2021 12:44 PM Code Status & VTE Plan VTE Prophylaxis Plan VTE Prophylaxis will be ordered: Yes Supervising Physician Co-Signing Physician Notes Patient is a 65-year-old male with history of coronary artery disease S/P CABG, dyslipidemia, past tobacco use, mood disorder and other medical problems presents with history of intermittent chest pain since 4 days duration. Patient had CABG about 3 weeks ago and did well postoperatively. He states having intermittent retrosternal chest pain lasting for about 5 to 15 minutes, unrelated to any exertion, describes this as chest tightness, radiates to bilateral arms. Also states having dry cough since last few days. He was started on Augmentin for possible sinus infection by PCP 2 days ago. Please review HPI for complete details of presentation. Currently he is chest pain- free while in ED. His initial troponin is negative. EKG showed T wave inversion slightly pronounced in anterior leads and nonspecific T waves in lateral leads. Chest x-ray showed findings suggestive of possible pneumonia/atelectasis. Lactate, procalcitonin within normal limits. Physical Exam: Vitals signs as noted above General Appearance:Moderately built and nourished, no apparent distress Head: normocephalic, Atraumatic Eyes: normal inspection, EOMI, PERRL Neck: supple, Trachea midline Respiratory/Chest: Normal breath sounds, CTA, No accessory muscle use, +CABG scar Cardiovascular: S1, S2, No murmur Abdomen/GI:Soft, Non tender, Bowel sounds present Extremities/Musculoskeletal:normal inspection, no edema Neurologic/Psych:AAOX3, grossly no focal neurological deficits Skin: normal color, warm Patient is admitted for management of chest pain rule out ACS H/O CAD S/P CABG We will continue to trend cardiac enzymes Check resting echo Consult cardiology Continue aspirin, Plavix, metoprolol, statin We will consider IV heparin if patient develops persistent chest pain or any troponin elevation We will repeat EKG in the morning Acute Bronchitis/Possible Pneumonia Start empirically on Rocephin, doxycycline Obtain CT chest for further evaluation I personally reviewed the record. Patient is interviewed and examined at bedside. Patient's care is coordinated with Nelly Asher PA-C. Please refer to the documentation above for details of patient's presentation and for discussion of other issues.
[2021-05-19] MEDS ORDERED: cefTRIAXone SODIUM 1,000 MG in DEXTROSE 5% 50 ML IV SCH (17:17)
[2021-05-19] MEDS ORDERED: cefTRIAXone SODIUM 2,000 MG in DEXTROSE 5% 50 ML IV STA (17:33)
[2021-05-19] MEDS ORDERED: cefTRIAXone SODIUM 2000MG/70ML D5W IV ONE (17:45)
--- NOTE | 2021-05-19 18:59 | CT Scan Report ---
CT chest diagnostic wo con CT DOSE: 437.61 mGycm HISTORY: Abnormal chest x-ray. Atypical chest pain. Possible Pneumonia TECHNIQUE: Multiaxial CT images of the chest were performed without contrast. A dose lowering techni que was utilized adhering to the principles of ALARA. COMPARISON: Chest x-ray 05/19/2021. FINDINGS: There is trace left pleural effusion. No pericardial effusion. Cardiac silhouette is border line enlarged. No pneumothorax. The central airways are patent. A 3 mm subpleural nodule within the l eft lower lobe in image 158. A 3 mm nodule within the right lung apex on image 25. A 3 mm nodule with in the right upper lobe on image 54. A 3 mm nodule within the right upper lobe on image 59. There are 2 similar-appearing subpleural nodules within the right upper lobe on image 72 which measure 4 mm. A small calcified pleural plaque within the right upper lobe on image 102. There is also small calcifi ed pleural plaque within the right lung base. There are few scattered small linear densities within t he lungs most pronounced within the left upper lobe. These favor scarring/atelectasis. A pneumonia co uld also a similar appearance but is considered less likely. Limited views of the upper abdomen demon strate a normal liver and spleen. There are recent poststernotomy changes. There is partial healing o f the sternal incision. Normal esophagus. No mediastinal or hilar lymphadenopathy. Mild calcified ari que within the normal caliber thoracic aorta. IMPRESSION: 1. There are few scattered linear densities within the lungs most pronounced within the left upper lo be. These are nonspecific but favor scarring/atelectasis. A pneumonia could also have a similar appea cami but is considered less likely. 2. There are few scattered subcentimeter indeterminate pulmonary nodules with the largest in the righ t upper lobe measuring 4 mm. Please refer to the chart below for recommended follow-up. 3. Trace left pleural effusion. 4. Small calcified pleural plaques within the right hemithorax consistent with asbestos-related disea se. 5. Additional findings as described above. ACT 112: Negative or not required by law. Electronically signed by: Jethro Vincent M.D. 05/19/2021 6:57 PM
[2021-05-19] MEDS ORDERED: NITROGLYCERIN SL 0.4 MG/TAB TAB SL PRN (20:44)
[2021-05-19] MEDS ORDERED: POLYETHYLENE (MIRALAX) 17 GM PACK PO PRN (20:44)
[2021-05-19] MEDS ORDERED: ONDANSETRON INJ 2 MG/ML 2 ML VIAL IV PRN (20:44)
[2021-05-19] MEDS ORDERED: ALUMINUM/MAGNESIUM SUSP 30 ML UDC PO PRN (20:44)
[2021-05-19] MEDS: ASPIRIN 81 MG ECTAB PO SCH (22:17)
[2021-05-19] MEDS: CITALOPRAM 20 MG TAB PO SCH (22:21)
[2021-05-19] MEDS: CLOPIDOGREL BISULFATE 75 MG TAB PO SCH (22:25)
[2021-05-19] MEDS: DOCUSATE SODIUM 100 MG CAP PO SCH (22:26)
[2021-05-19] MEDS: METOPROLOL TARTRATE 25 MG TAB PO SCH (22:27)
[2021-05-19] MEDS: HEPARIN SOD 5,000 UNIT/0.5 ML VIAL SQ SCH (22:27)
[2021-05-19] MEDS: FAMOTIDINE 10 MG TABLET PO SCH (22:28)
[2021-05-19] MEDS: DOXYCYCLINE HYCLATE 100 MG CAP PO SCH (23:09)
[2021-05-20] MEDS: HEPARIN SOD 5,000 UNIT/0.5 ML VIAL SQ SCH ×3 (05:02→21:20)
[2021-05-20 06:53] LABS: Hematocrit (blood only) 40.2 % (42-52); Mean Corpuscular Hemoglobin 29.2 pg (25-34); Mean Corpuscular Hgb Conc 32.3 g/dL (32-36); Mean Corpuscular Volume 90.3 fL (80-100); Mean Platelet Volume 8.6 fL (7.4-10.4); Platelet Count 627 K/uL (130-400); RDW Coefficient of Variation 13.6 % (11.5-14.5); RDW Standard Deviation 45.2 fL (36.4-46.3); Red Blood Count 4.45 M/uL (4.7-6.1); White Blood Count 7.18 K/uL (4.8-10.8)
[2021-05-20 07:01] LABS: Partial Thromboplastin Time 26.3 Seconds (21.0-31.0)
[2021-05-20 07:30] LABS: BUN Creatinine Ratio 14.7 (10-20); Blood Urea Nitrogen 15 mg/dl (7-18); Calcium 9.5 mg/dl (8.5-10.1); Carbon Dioxide 31 mmol/L (21-32); Chloride 109 mmol/L (98-107); Creatinine Clr Calc Pharmacy 73.4 ml/min; Est GFR (African American) 91.8 ml/min; Est GFR (Non-African American) 79.2 ml/min; Glucose 80 mg/dl (70-99); Magnesium 2.4 mg/dl (1.8-2.4); Potassium 4.5 mmol/L (3.5-5.1); Sodium 141 mmol/L (136-145)
[2021-05-20 07:35] LABS: C Reactive Protein 0.54 mg/dl (0-0.29); Chol HDL Ratio 6; Cholesterol 210 mg/dl (0-200); HDL Cholesterol 37 mg/dl; LDL Cholesterol Calculated 148 mg/dl; Triglycerides 127 mg/dl (0-150); Troponin I < 0.015 ng/ml (0-0.045); VLDL Cholesterol 25 mg/dl
[2021-05-20] MEDS: POTASSIUM CHLORIDE 10 MEQ TABCR PO SCH (07:36)
[2021-05-20] MEDS: CETIRIZINE HCL 10 MG TABLET PO SCH (07:36)
[2021-05-20] MEDS: PANTOprazole 40 MG TAB PO SCH (07:36)
[2021-05-20] MEDS: SIMVASTATIN 40 MG TAB PO SCH (07:36)
[2021-05-20] MEDS: FUROSEMIDE 40 MG TAB PO SCH (07:36)
[2021-05-20] MEDS: FAMOTIDINE 10 MG TABLET PO SCH ×2 (07:37→20:00)
[2021-05-20] MEDS: METOPROLOL TARTRATE 25 MG TAB PO SCH ×2 (07:37→20:29)
[2021-05-20] MEDS: DOCUSATE SODIUM 100 MG CAP PO SCH ×2 (07:37→19:58)
[2021-05-20 08:48] LABS: Estimated Average Glucose 111 mg/dl; Hemoglobin A1C 5.5 % (4.5-5.6)
[2021-05-20] MEDS: DOXYCYCLINE HYCLATE 100 MG CAP PO SCH ×2 (09:15→19:59)
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
--- NOTE | 2021-05-20 13:21 | Electrocardiogram Report ---
Test Reason : Blood Pressure : / mmHG Vent. Rate : 053 BPM Atrial Rate : 053 BPM P-R Int : 146 ms QRS Dur : 096 ms QT Int : 464 ms P-R-T Axes : 062 011 102 degrees QTc Int : 435 ms Sinus bradycardia Possible Left atrial enlargement ST elevation consider inferior injury or acute infarct or early repolarization Consider right ventricular involvement in acute inferior infarct Abnormal ECG When compared with ECG of 19-MAY-2021 11:49, No significant change was found Confirmed by Phil Banda [id number] on 05/20/2021 1:20:29 PM Referred By: REFERRED SELF Confirmed By:Maxx Banda
[2021-05-20] MEDS: ACETAMINOPHEN 325 MG TAB PO PRN ×2 (14:14→20:33)
[2021-05-20] MEDS: oxyCODONE HCL IR 5 MG TAB (IMMEDIATE RELEASE) PO PRN (15:56)
[2021-05-20] MEDS: cefTRIAXone SODIUM 2,000 MG in DEXTROSE 5% 50 ML IV SCH (17:17)
--- NOTE | 2021-05-20 18:30 | Hospitalist Progress Note ---
Date of Service May 20, 2021 Assessment & Plan (1) Chest pain: (2) CAD, multiple vessel: (3) S/P CABG x 2: Plan: Patient is a 65 yr male with H/O CAD with recent 2vCABG on 05/02/21 at [facility], history of tobacco use and other medical problems listed below presenting with intermittent CP x 4 days. Chest Pain R/O ACS Recent 2v CABG at [facility] 05/02/[address] and T wave abnormality, consider anterolateral ischemia. When compared with EKG from April, inverted T waves have replaced nonspecific T wave abnormality in lateral leads Troponin negative CXR with interval midline sternotomy. Interval development of wispy left midlung zone opacities, statistically atelectatic although an infectious/inflammatory processes could appear similar ECHO: There is hypo to akinesis of the distal septum and severe hypokinesis of the inferior posterior myocardium. EF 5 to 60%. No significant valvular pathology. Appreciate Cardiology Input Continue aspirin, Plavix, metoprolol, Statin Need repeat cardiac catheterization (4) Pneumonia: Plan: Acute Bronchitis Recent sinus congestion, has been on Augmentin for 2 days -CT chest:There are few scattered linear densities within the lungs most pronounced within the left upper lobe. These are nonspecific but favor scarring/atelectasis. A pneumonia could also have a similar appearance but is considered less likely. There are few scattered subcentimeter indeterminate pulmonary nodules with the largest in the right upper lobe measuring 4 mm. Please refer to the chart below for recommended follow-up. Trace left pleural effusion. Small calcified pleural plaques within the right hemithorax consistent with asbestos-related disease. -Continue Rocephin and doxy Day #2 (5) Mood disorder: Plan: Continue Celexa (6) Dyslipidemia, goal LDL below 70: Plan: Continue atorvastatin (7) Tobacco use: Plan: Recent cessation DVT Px: SQ heparin Code status: FULL CODE Admission and Anticipated Discharge Date Admission Date: May 19, 2021 Subjective Patient is seen and examined at bedside States feeling much better today Chest pain resolved Less cough today Denies dyspnea, dizziness, nausea, abdominal pain, diarrhea Offers no other complaints Review of Systems Review of Systems: All systems reviewed & are unremarkable except as noted in Subjective Physical Exam Physical Exam: Physical Exam: Vitals signs as noted above General Appearance:Moderately built and nourished, no apparent distress Head: normocephalic, Atraumatic Eyes: normal inspection, EOMI Neck: supple, Trachea midline Respiratory/Chest: Normal breath sounds, CTA, No accessory muscle use, +CABG scar Cardiovascular: S1, S2, + murmur Abdomen/GI:Soft, Non tender, Bowel sounds present Extremities/Musculoskeletal:normal inspection, no edema Neurologic/Psych:AAOX3, grossly no focal neurological deficits Skin: normal color, warm Results & Data Results & Data ([facility]) Vital Signs (Past 12 Hours) Vital Signs Temp Pulse Pulse Resp BP Pulse Ox 05/20/21 15:50 36.5 C 64 22 111/73 98 05/20/21 14:59 85 05/20/21 12:11 36.9 C 80 20 106/70 94 05/20/21 07:40 60 05/20/21 07:33 36.8 C 56 L 16 113/78 95 Laboratory Results Short CBC 05/20/21 Range/Units 06:19 WBC 7.18 (4.8-10.8) K/uL Hgb 13.0 L (14.0-18.0) g/dL Hct 40.2 L (42-52) % Plt Count 627 H (130-400) K/uL BMP 05/20/21 06:19 Sodium 141 Potassium 4.5 Chloride 109 H Carbon Dioxide 31 BUN 15 Creatinine 1.00 Glucose 80 Calcium 9.5 Cardiac Enzymes 05/19/21 05/20/21 Range/Units 21:00 06:19 Troponin I 0.018 < 0.015 (0-0.045) ng/ml
[2021-05-20] MEDS: ASPIRIN 81 MG ECTAB PO SCH (19:56)
[2021-05-20] MEDS: CITALOPRAM 20 MG TAB PO SCH (19:57)
[2021-05-20] MEDS: CLOPIDOGREL BISULFATE 75 MG TAB PO SCH (19:58)
[2021-05-21] MEDS: HEPARIN SOD 5,000 UNIT/0.5 ML VIAL SQ SCH ×2 (04:48→14:59)
[2021-05-21 06:35] LABS: Hematocrit (blood only) 39.4 % (42-52); Hemoglobin 13.2 g/dL (14.0-18.0); Mean Corpuscular Hemoglobin 29.3 pg (25-34); Mean Corpuscular Hgb Conc 33.5 g/dL (32-36); Mean Corpuscular Volume 87.6 fL (80-100); Mean Platelet Volume 8.7 fL (7.4-10.4); Platelet Count 531 K/uL (130-400); RDW Coefficient of Variation 13.5 % (11.5-14.5); RDW Standard Deviation 43.4 fL (36.4-46.3); White Blood Count 9.14 K/uL (4.8-10.8)
[2021-05-21 07:08] LABS: BUN Creatinine Ratio 20.6 (10-20); Calcium 9.6 mg/dl (8.5-10.1); Creatinine Clr Calc Pharmacy 63.5 ml/min; Est GFR (African American) 79.2 ml/min; Est GFR (Non-African American) 68.3 ml/min; Potassium 4.2 mmol/L (3.5-5.1)
[2021-05-21] MEDS: METOPROLOL TARTRATE 25 MG TAB PO SCH ×2 (07:55→21:33)
[2021-05-21] MEDS: FAMOTIDINE 10 MG TABLET PO SCH ×2 (07:55→21:33)
[2021-05-21] MEDS: DOXYCYCLINE HYCLATE 100 MG CAP PO SCH ×2 (07:56→21:32)
[2021-05-21] MEDS: CETIRIZINE HCL 10 MG TABLET PO SCH (07:56)
[2021-05-21] MEDS: SIMVASTATIN 40 MG TAB PO SCH (07:56)
[2021-05-21] MEDS: POTASSIUM CHLORIDE 10 MEQ TABCR PO SCH (07:57)
[2021-05-21] MEDS: PANTOprazole 40 MG TAB PO SCH (07:57)
[2021-05-21] MEDS: DOCUSATE SODIUM 100 MG CAP PO SCH ×2 (09:34→21:31)
[2021-05-21] MEDS: FUROSEMIDE 40 MG TAB PO SCH (09:34)
[2021-05-21] MEDS: FLUTICASONE PROPIONATE NA SPR 16 GM BTL SCH (10:30)
--- NOTE | 2021-05-21 10:44 | Electrocardiogram Report ---
Test Reason : Blood Pressure : / mmHG Vent. Rate : 055 BPM Atrial Rate : 055 BPM P-R Int : 158 ms QRS Dur : 104 ms QT Int : 464 ms P-R-T Axes : 057 001 097 degrees QTc Int : 443 ms Sinus bradycardia Marked T wave inversions consider anteroseptal ischemia ST elevation consider inferior injury or acute infarct Abnormal ECG When compared with ECG of 20-MAY-2021 05:42, No significant change was found w/o progressive changes of an acute infarct Confirmed by Shiv Moon ([id number]) on 05/21/2021 10:44:06 AM Referred By: REFERRED SELF Confirmed By:Shiv Moon
--- NOTE | 2021-05-21 12:42 | Hospitalist Progress Note ---
Date of Service May 21, 2021 Assessment & Plan (1) Chest pain: (2) CAD, multiple vessel: (3) S/P CABG x 2: Plan: Patient is a 65 yr male with H/O CAD with recent 2vCABG on 05/02/21 at [facility], history of tobacco use and other medical problems listed below presenting with intermittent CP x 4 days. Chest Pain R/O ACS Recent 2v CABG at [facility] 05/02/[address] and T wave abnormality, consider anterolateral ischemia. When compared with EKG from April, inverted T waves have replaced nonspecific T wave abnormality in lateral leads Troponin negative CXR with interval midline sternotomy. Interval development of wispy left midlung zone opacities, statistically atelectatic although an infectious/inflammatory processes could appear similar ECHO: There is hypo to akinesis of the distal septum and severe hypokinesis of the inferior posterior myocardium. EF 5 to 60%. No significant valvular pathology. Appreciate Cardiology Input Continue aspirin, Plavix, metoprolol, Statin May need repeat cardiac catheterization No recurrence of chest pain currently (4) Pneumonia: Plan: Acute Bronchitis Recent sinus congestion, has been on Augmentin for 2 days -CT chest:There are few scattered linear densities within the lungs most pronounced within the left upper lobe. These are nonspecific but favor scarring/atelectasis. A pneumonia could also have a similar appearance but is considered less likely. There are few scattered subcentimeter indeterminate pulmonary nodules with the largest in the right upper lobe measuring 4 mm. Please refer to the chart below for recommended follow-up. Trace left pleural effusion. Small calcified pleural plaques within the right hemithorax consistent with asbestos-related disease. -Continue Rocephin and doxy Day #3 Add Flonase (5) Mood disorder: Plan: Continue Celexa (6) Dyslipidemia, goal LDL below 70: Plan: Continue atorvastatin (7) Tobacco use: Plan: Recent cessation DVT Px: SQ heparin Code status: FULL CODE Admission and Anticipated Discharge Date Admission Date: May 20, 2021 Subjective Patient is seen and examined at bedside Reports sinus pressure overnight Less cough today No recurrence of chest pain Denies dyspnea, dizziness, nausea, abdominal pain, diarrhea Review of Systems Review of Systems: All systems reviewed & are unremarkable except as noted in Subjective Physical Exam Physical Exam: Physical Exam: Vitals signs as noted above General Appearance:Moderately built and nourished, no apparent distress Head: normocephalic, Atraumatic Eyes: normal inspection, EOMI Neck: supple, Trachea midline Respiratory/Chest: Normal breath sounds, CTA, No accessory muscle use, +CABG scar Cardiovascular: S1, S2, + murmur Abdomen/GI:Soft, Non tender, Bowel sounds present Extremities/Musculoskeletal:normal inspection, no edema Neurologic/Psych:AAOX3, grossly no focal neurological deficits Skin: normal color, warm Results & Data Results & Data ([facility]) Vital Signs (Past 12 Hours) Vital Signs Temp Pulse Pulse Resp BP Pulse Ox Pulse Ox 05/21/21 11:41 36.9 C 53 L 18 106/66 97 05/21/21 09:27 98 05/21/21 09:24 54 L 05/21/21 07:27 36.6 C 56 L 16 102/66 98 05/21/21 04:26 36.5 C 54 L 18 101/65 97 05/21/21 00:49 60 Laboratory Results Short CBC 05/21/21 Range/Units 05:48 WBC 9.14 (4.8-10.8) K/uL Hgb 13.2 L (14.0-18.0) g/dL Hct 39.4 L (42-52) % Plt Count 531 H (130-400) K/uL BMP 05/21/21 05:48 Sodium 138 Potassium 4.2 Chloride 106 Carbon Dioxide 29 BUN 23 H D Creatinine 1.13 Glucose 90 Calcium 9.6
--- NOTE | 2021-05-21 13:26 | Cardiology Progress Note ---
Date of Service May 21, 2021 Assessment & Plan (1) Sinus pressure: (2) Abnormal electrocardiogram [ECG] [EKG]: (3) S/P CABG x 2: Plan: Patient with presenting symptom predominate sinus pressure and pain in his upper teeth, jaw. To a lesser degree he had described chest discomfort. Chest discomfort has resolved. Looking back to the symptoms that prompted his cardiac catheterization, in addition to chest pain, jaw and tooth pain was also noted as described in the cardiology consultation note dated 04/28/2021 that led to his initial cardiac catheterization. The patient tells me that he had initially sought medical care with concerns that he was having a sinus infection several weeks ago, and he ended up having bypass surgery. His sinus and tooth pain had resolved post CABG up until 5 days ago, and he had most recently experienced significant dental pain 2 mornings ago. EKG is grossly abnormal with subtle inferior ST elevation, and deep T wave inversions in the anterior precordial leads. EKG is significantly changed compared to that obtained on postop day 1 after his recent bypass surgery. His echocardiogram is somewhat unhelpful as he had resting regional wall motion abnormalities specifically in the LAD territory pre-CABG. He has not had any significant elevation in his troponin I thus far. At this time I have requested a repeat troponin. After further discussion with the patient I am going to request a contrast-enhanced CT of the sinuses for further evaluation. He is currently on IV Rocephin as well as oral doxycycline for presumed pneumonia, and I think this antibiotic regimen would be sufficient if he also had a complicated bacterial sinusitis. Given the significant changes on his EKG, as well as concerns that this dental pain may in fact be an anginal equivalent, further ischemic work-up may be necessary during his hospital stay depending upon what the CT of the sinuses shows. Admission and Anticipated Discharge Date Admission Date: May 20, 2021 Subjective Patient is seen and examined at bedside Reports sinus pressure overnight Denies chest pain or cough. Review of Systems Review of Systems: All systems reviewed & are unremarkable except as noted in HPI & below Physical Exam Physical Exam: Temp Pulse Resp BP Pulse Ox 36.9 C 53 L 18 106/66 97 05/21/21 11:41 05/21/21 11:41 05/21/21 11:41 05/21/21 11:41 05/21/21 11:41 Respiratory: normal respiratory effort, lungs clear to auscultation Cardiovascular: RRR, no murmur, no edema Chest (Breasts): Additional Comments: chest incision healing well Neurologic: PERRL, EOMI, accommodation nl, no face palsy, no dysarthria Results & Data ([facility]) Vital Signs (Past 12 Hours) Vital Signs Temp Pulse Pulse Resp BP Pulse Ox Pulse Ox 05/21/21 11:41 36.9 C 53 L 18 106/66 97 05/21/21 09:27 98 05/21/21 09:24 54 L 05/21/21 07:27 36.6 C 56 L 16 102/66 98 05/21/21 04:26 36.5 C 54 L 18 101/65 97
[2021-05-21] MEDS ORDERED: AMOXICILLIN/CLAVULANATE 875 MG TAB PO ONE (13:30)
[2021-05-21] MEDS: oxyCODONE HCL IR 5 MG TAB (IMMEDIATE RELEASE) PO PRN (17:28)
[2021-05-21] MEDS: cefTRIAXone SODIUM 2,000 MG in DEXTROSE 5% 50 ML IV SCH (17:47)
[2021-05-21] MEDS ORDERED: OPTIRAY 320 125ml IV ONE (20:22)
--- NOTE | 2021-05-21 21:24 | Communication Note ---
Date of Service: May 21, 2021 Notified by RN around 9 PM of patient chest pain complaints with radiation to the jaw and sinuses. Chest pain relieved by nitroglycerin administration. EKG as per my interpretation rate 90, NSR, normal axis, ST elevation inferior leads, T wave inversion in anteroseptal leads (similar to AM EKG ) Troponin within normal limits AP STEMI Case discussed with Dr. Reyes (soldering technician on-call) who recommended discussion with patient's [facility] rehab consultant (Dr. Kim). Dr. Kim recommended initiation of IV heparin and keeping patient n.p.o. for possible cardiac catheterization in a.m. he recommends contacting soldering technician again for a Heart Alert if chest pain recurs overnight. Dr. Reyes updated of plan of care. Will relay to AM provider.
[2021-05-21] MEDS: ASPIRIN 81 MG ECTAB PO SCH (21:29)
[2021-05-21] MEDS: CITALOPRAM 20 MG TAB PO SCH (21:30)
[2021-05-21] MEDS: CLOPIDOGREL BISULFATE 75 MG TAB PO SCH (21:31)
[2021-05-21] MEDS ORDERED: SODIUM CHLORIDE 0.9% 1000ML 1,000 ML IV SCH (21:45)
[2021-05-21] MEDS ORDERED: D5W AND NSS 1,000 ML IV SCH (21:45)
[2021-05-21 22:01] LABS: Partial Thromboplastin Time 25.8 Seconds (21.0-31.0)
[2021-05-21] MEDS: HEPARIN SODIUM/DEXTROSE 25,000 UNITS/500 ML BAG IV SCH (22:11)
[2021-05-22 04:39] LABS: Partial Thromboplastin Ratio 1.7; Partial Thromboplastin Time 43.5 Seconds (21.0-31.0)
[2021-05-22 04:49] LABS: Blood Urea Nitrogen 18 mg/dl (7-18); Calcium 9.2 mg/dl (8.5-10.1); Carbon Dioxide 29 mmol/L (21-32); Chloride 108 mmol/L (98-107); Creatinine Clr Calc Pharmacy 71.7 ml/min; Est GFR (African American) 91.8 ml/min; Est GFR (Non-African American) 79.2 ml/min; Glucose 98 mg/dl (70-99); Potassium 3.9 mmol/L (3.5-5.1); Sodium 139 mmol/L (136-145)
[2021-05-22 04:53] LABS: Troponin I < 0.015 ng/ml (0-0.045)
[2021-05-22] MEDS ORDERED: AMOXICILLIN/CLAVULANATE 875 MG TAB PO SCH (07:00)
[2021-05-22] MEDS: FAMOTIDINE 10 MG TABLET PO SCH ×2 (07:42→20:05)
[2021-05-22] MEDS: DOXYCYCLINE HYCLATE 100 MG CAP PO SCH ×2 (07:42→20:04)
[2021-05-22] MEDS: CETIRIZINE HCL 10 MG TABLET PO SCH (07:43)
[2021-05-22] MEDS: PANTOprazole 40 MG TAB PO SCH (07:43)
[2021-05-22] MEDS: POTASSIUM CHLORIDE 10 MEQ TABCR PO SCH (07:44)
[2021-05-22] MEDS: SIMVASTATIN 40 MG TAB PO SCH (07:44)
[2021-05-22] MEDS: METOPROLOL TARTRATE 25 MG TAB PO SCH ×2 (07:45→20:09)
[2021-05-22] MEDS: FLUTICASONE PROPIONATE NA SPR 16 GM BTL SCH (07:46)
[2021-05-22] MEDS: FUROSEMIDE 40 MG TAB PO SCH (09:12)
[2021-05-22] MEDS: DOCUSATE SODIUM 100 MG CAP PO SCH ×3 (09:12→20:04)
--- NOTE | 2021-05-22 09:34 | CT Scan Report ---
CT sinus w con HISTORY: sinus pressure TECHNIQUE: Multiaxial CT images of the sinuses were performed following the intravenous administratio n of 94 cc of contrast and reformatted in the sagittal and coronal planes. COMPARISON STUDY: None. FINDINGS: The paranasal sinuses and mastoid air cells are clear. No fluid levels within the paranasal sinuses. Minimal left nasal septal deviation. The bilateral ostiomeatal units are patent. The lamina papyracea and orbital floors are intact. The brain parenchyma and orbits are unremarkable. The ptery gopalatine fossa are well-maintained. No significant soft tissue swelling. IMPRESSION: The paranasal sinuses and mastoid air cells are clear. ACT 112: Negative or not required by law. Electronically signed by: Jethro Vincent M.D. 05/22/2021 9:32 AM
--- NOTE | 2021-05-22 10:38 | Cardiology Progress Note ---
Date of Service May 22, 2021 Assessment & Plan (1) Intermittent chest pain: Plan: I have ongoing concern that this is an anginal equivalent. Serial troponin levels are undetectable. EKG persistently abnormal, but relatively unchanged compared to admission. Given lack of recurrent symptoms (asymptomatic since event just after 1999 on 05/21/21) , no indication for emergent cardiac catheterization- this may change however if his symptoms return. For now, advance diet. Continue medical therapy including heparin infusion, ASA, clopidogrel, metoprolol, simvastatin. Hold furosemide am of 05/23. NPO after midnight, tentative cardiac catheterization tomorrow, Sunday, am. (2) Abnormal electrocardiogram [ECG] [EKG]: Plan: as noted above. (3) Sinus pressure: Plan: CT of sinuses is normal. I think this clarifies things. Received 94 ml of radiographic contrast with gentle IVF after. Having received contrast last evening, this is another factor with regards to delaying non emergent cardiac catheterization until tomorrow. Renal function is stable. -Continue empiric antibiotics for pneumonia, pending cardiac catheterization results. Admission and Anticipated Discharge Date Admission Date: May 20, 2021 Subjective Patient seen in cardiology follow-up. Last evening, shortly having contrast- enhanced CT of the sinuses, he was walking back from the bathroom and had recurrent tooth/jaw and chest discomfort. He was assessed acutely by Dr. Ricketts and we had discussed the case by telephone. EKG was relatively unchanged, with ongoing ST elevation this time limited to lead or minimal 3, ST segment depression in the high lateral leads I and aVL. The T wave inversions in the precordial leads are actually less prominent. His discomfort is relieved with sublingual nitroglycerin. Heparin was initiated. He has not had recurrence. Troponin performed yesterday morning was undetectable, he was undetectable shortly after his symptoms last evening at 2142, and once again undetectable this morning. Telemetry reveals sinus rhythm in the range of 50 to 60s. Review of Systems Review of Systems: All systems reviewed & are unremarkable except as noted in HPI & below Physical Exam Physical Exam: Temp Pulse Resp BP Pulse Ox 36.6 C 60 16 117/73 98 05/22/21 07:39 05/22/21 09:08 05/22/21 07:39 05/22/21 07:39 05/22/21 09:05 Respiratory: normal respiratory effort, lungs clear to auscultation Cardiovascular: RRR, no murmur, no edema Chest (Breasts): Additional Comments: midline sternotomy incision is clean , dry and intact. Neurologic: PERRL, EOMI, accommodation nl, no face palsy, no dysarthria Results & Data ([facility]) Vital Signs (Past 12 Hours) Vital Signs Temp Pulse Pulse Resp BP Pulse Ox Pulse Ox 05/22/21 09:08 60 05/22/21 09:05 98 05/22/21 07:39 36.6 C 61 16 117/73 98 05/22/21 04:29 36.4 C L 60 16 138/91 94 05/22/21 01:45 72 05/21/21 23:49 36.6 C 89 16 96 05/21/21 23:47 36.8 C 66 14 106/70 97 Laboratory Results Cardiac Enzymes 05/21/21 05/21/21 05/22/21 Range/Units 05:48 21:42 03:52 Troponin I < 0.015 < 0.015 < 0.015 (0-0.045) ng/ml Coagulation 05/21/21 05/22/21 Range/Units 21:42 03:51 APTT 25.8 43.5 H (21.0-31.0) Seconds Comprehensive Metabolic Panel 05/22/21 Range/Units 03:52 Sodium 139 (136-145) mmol/L Potassium 3.9 (3.5-5.1) mmol/L Chloride 108 H (98-107) mmol/L Carbon Dioxide 29 (21-32) mmol/L BUN 18 (7-18) mg/dl Creatinine 1.00 (0.6-1.4) mg/dl Glucose 98 (70-99) mg/dl Calcium 9.2 (8.5-10.1) mg/dl Intake and Output 05/21/21 05/22/21 05/22/21 22:59 06:59 14:59 Intake Total 70 / 1433.833 158 / 1433.833 55.833 / 55.833 Balance 70 / 1433.833 158 / 1433.833 55.833 / 55.833 Intake: IV 70 / 283.833 158 / 283.833 55.833 / 55.833 Heparin Sodium/Dextrose 25,000 158 / 213.833 55.833 / 55.833 units In 500 ml @ 1 UNITS/HR 0. 02 mls/hr IV .Q24H [facility] Rx#: [id number] cefTRIAXone SODIUM 2,000 mg In 70 / 70 Dextrose 5% 50 ml @ 100 mls/hr IV Q24H [facility] Rx#:[id number] Other: Other Intake Source npo # Unmeasured Voids 1 Weight 81.1 kg
[2021-05-22 11:36] LABS: Partial Thromboplastin Time 53.2 Seconds (21.0-31.0)
--- NOTE | 2021-05-22 13:24 | Electrocardiogram Report ---
Test Reason : Blood Pressure : / mmHG Vent. Rate : 091 BPM Atrial Rate : 091 BPM P-R Int : 146 ms QRS Dur : 086 ms QT Int : 360 ms P-R-T Axes : 049 006 107 degrees QTc Int : 442 ms Normal sinus rhythm Possible Left atrial enlargement Anterior T wave abnormality, consider ischemia Inferior injury current Abnormal ECG When compared with ECG of 21-MAY-2021 05:15, Vent. rate has increased BY 36 BPM Anterior T wave abnormality less pronounced Confirmed by Jarred Esquivel ([id number]) on 05/22/2021 1:23:55 PM Referred By: REFERRED SELF Confirmed By:Jarred Esquivel
--- NOTE | 2021-05-22 15:54 | Hospitalist Progress Note ---
Date of Service May 22, 2021 Assessment & Plan (1) Chest pain: (2) CAD, multiple vessel: (3) S/P CABG x 2: Plan: Patient is a 65 yr male with H/O CAD with recent 2vCABG on 05/02/21 at [facility], history of tobacco use and other medical problems listed below presenting with intermittent CP x 4 days. Chest Pain R/O ACS ? Angina Equivalent Recent 2v CABG at [facility] 05/02/[address] and T wave abnormality, consider anterolateral ischemia. When compared with EKG from April, inverted T waves have replaced nonspecific T wave abnormality in lateral leads Troponin negative CXR with interval midline sternotomy. Interval development of wispy left midlung zone opacities, statistically atelectatic although an infectious/inflammatory processes could appear similar ECHO: There is hypo to akinesis of the distal septum and severe hypokinesis of the inferior posterior myocardium. EF 5 to 60%. No significant valvular pathology. Appreciate Cardiology Input Continue aspirin, Plavix, metoprolol, Statin Started on IV Heparin NPO after midnight for possible Cath tmw (4) Pneumonia: Plan: Acute Bronchitis Recent sinus congestion, has been on Augmentin for 2 days -CT chest:There are few scattered linear densities within the lungs most pronounced within the left upper lobe. These are nonspecific but favor scarring/atelectasis. A pneumonia could also have a similar appearance but is considered less likely. There are few scattered subcentimeter indeterminate pulmonary nodules with the largest in the right upper lobe measuring 4 mm. Please refer to the chart below for recommended follow-up. Trace left pleural effusion. Small calcified pleural plaques within the right hemithorax consistent with asbestos-related disease. -Sinus CT:The paranasal sinuses and mastoid air cells are clear. -Continue Rocephin and doxy Day #4 Continue Flonase (5) Mood disorder: Plan: Continue Celexa (6) Dyslipidemia, goal LDL below 70: Plan: Increased to Atorvastatin 80mg (7) Tobacco use: Plan: Recent cessation DVT Px: IV Heparin Code status: FULL CODE Admission and Anticipated Discharge Date Admission Date: May 20, 2021 Subjective Patient is seen and examined at bedside Patient had recurrence of chest pain yesterday evening Started on IV heparin overnight Has only minimal cough Currently chest pain free Denies dyspnea, dizziness, nausea, abdominal pain, diarrhea May have Cath tomorrow Review of Systems Review of Systems: All systems reviewed & are unremarkable except as noted in Subjective Physical Exam Physical Exam: Physical Exam: Vitals signs as noted above General Appearance:Moderately built and nourished, no apparent distress Head: normocephalic, Atraumatic Eyes: normal inspection, EOMI Neck: supple, Trachea midline Respiratory/Chest: Normal breath sounds, CTA, No accessory muscle use, +CABG scar Cardiovascular: S1, S2, + murmur Abdomen/GI:Soft, Non tender, Bowel sounds present Extremities/Musculoskeletal:normal inspection, no edema Neurologic/Psych:AAOX3, grossly no focal neurological deficits Skin: normal color, warm Results & Data Results & Data ([facility]) Vital Signs (Past 12 Hours) Vital Signs Temp Pulse Pulse Resp BP BP Pulse Ox 05/22/21 15:17 36.7 C 56 L 18 118/78 100 05/22/21 11:43 36.5 C 56 L 17 112/70 99 05/22/21 09:08 60 05/22/21 09:05 05/22/21 07:39 36.6 C 61 16 117/73 98 05/22/21 04:29 36.4 C L 60 16 138/91 94 Pulse Ox 05/22/21 15:17 05/22/21 11:43 05/22/21 09:08 05/22/21 09:05 98 05/22/21 07:39 05/22/21 04:29 Laboratory Results [facility] 05/22/21 03:52 Sodium 139 Potassium 3.9 Chloride 108 H Carbon Dioxide 29 BUN 18 Creatinine 1.00 Glucose 98 Calcium 9.2 Cardiac Enzymes 05/21/21 05/22/21 Range/Units 21:42 03:52 Troponin I < 0.015 < 0.015 (0-0.045) ng/ml
[2021-05-22] MEDS: cefTRIAXone SODIUM 2,000 MG in DEXTROSE 5% 50 ML IV SCH (17:18)
[2021-05-22] MEDS: HEPARIN SODIUM/DEXTROSE 25,000 UNITS/500 ML BAG IV SCH (17:36)
[2021-05-22] MEDS: Heparin IV Adult Wt-Based Standard *NO* Bolus Protocol IV SCH ×3 (17:37→17:39)
[2021-05-22] MEDS: ASPIRIN 81 MG ECTAB PO SCH (20:02)
[2021-05-22] MEDS: CITALOPRAM 20 MG TAB PO SCH (20:03)
[2021-05-22] MEDS: CLOPIDOGREL BISULFATE 75 MG TAB PO SCH (20:03)
[2021-05-23 05:50] LABS: BUN Creatinine Ratio 14.1 (10-20); Calcium 9.4 mg/dl (8.5-10.1); Creatinine Clr Calc Pharmacy 70.1 ml/min; Est GFR (African American) 89.6 ml/min; Est GFR (Non-African American) 77.3 ml/min; Potassium 4.3 mmol/L (3.5-5.1)
[2021-05-23 06:00] LABS: Partial Thromboplastin Ratio 2.3
[2021-05-23 06:16] LABS: Partial Thromboplastin Time 61.2 Seconds (21.0-31.0)
[2021-05-23] MEDS: DOCUSATE SODIUM 100 MG CAP PO SCH ×2 (08:08→19:54)
[2021-05-23] MEDS: CETIRIZINE HCL 10 MG TABLET PO SCH (08:09)
[2021-05-23] MEDS: DOXYCYCLINE HYCLATE 100 MG CAP PO SCH ×2 (08:09→19:55)
[2021-05-23] MEDS: FAMOTIDINE 10 MG TABLET PO SCH ×2 (08:09→19:55)
[2021-05-23] MEDS: METOPROLOL TARTRATE 25 MG TAB PO SCH ×2 (08:09→19:54)
[2021-05-23] MEDS: PANTOprazole 40 MG TAB PO SCH (08:09)
[2021-05-23] MEDS: ATORVASTATIN 40 MG TAB PO SCH (08:09)
[2021-05-23] MEDS: FLUTICASONE PROPIONATE NA SPR 16 GM BTL SCH (08:11)
--- NOTE | 2021-05-23 09:38 | Pre Anesthesia Assessment ---
Date of Service May 23, 2021 Pre Sedation Assessment Vital Signs Temp Pulse Pulse Resp BP BP Pulse Ox 05/24/21 07:40 36.7 C 59 L 19 104/68 97 05/24/21 04:37 37 C 58 L 18 108/69 99 05/24/21 02:16 69 05/23/21 23:21 36.5 C 82 18 120/72 98 05/23/21 20:15 36.7 C 63 14 92/57 L 95 05/23/21 18:39 65 18 98/56 L 97 05/23/21 17:39 61 18 108/63 98 05/23/21 16:39 77 18 133/69 98 05/23/21 15:39 58 L 18 111/70 96 05/23/21 14:39 55 L 18 102/62 97 05/23/21 14:09 60 18 104/62 96 05/23/21 13:39 53 L 18 109/66 97 05/23/21 13:24 59 L 18 108/69 99 05/23/21 13:09 36.5 C 61 18 112/62 98 05/23/21 12:50 61 16 106/70 98 05/23/21 12:35 55 L 20 101/74 99 05/23/21 08:50 36.8 C 56 L 16 114/76 97 Cardiovascular RRR, no murmur, no edema + PMI normal no edema Respiratory normal respiratory effort, lungs clear to auscultation Pre-Sedation Airway Assessment Smoking Status: Former smoker 2 3 NPO Status Date of Last Intake of Solid Food: 05/22/21 Time of Last Intake of Solid Foods: 12:00 Procedure Planning Contraindications for Sedation: none Current Medications Reviewed: Yes Notes The planned sedation has been discussed with the patient. Informed Consent was obtained. I have identified the patient, determined the appropriateness of sedation and have assessed the patient immediately prior to the procedure. All medicine(s) and interventions are by my order.
--- NOTE | 2021-05-23 10:27 | Cardiology Progress Note ---
Date of Service May 23, 2021 Assessment & Plan (1) Intermittent chest pain: (2) Abnormal electrocardiogram [ECG] [EKG]: (3) S/P CABG x 2: (4) CAD, multiple vessel: Plan: I had a long discussion with the patient regarding his presenting symptoms in conjunction with ECG abnormalities. Prior cardiac catheterization films reviewed demonstrating severe proximal codominant RCA stenosis. This vessel was not bypassed during recent surgery due to small caliber vessel. Recommend further evaluation with coronary angiography and bypass graft angiography. Patient agreeable. Risks of procedure discussed. No medication changes. Postoperative pericarditis (Reina syndrome) a consideration, however, patient without positional changes or pleuritic pain at this time. There is no evidence of significant pericardial effusion per echocardiogram. Admission and Anticipated Discharge Date Admission Date: May 20, 2021 Subjective Patient seen and examined the bedside. Denies any recurrent chest discomfort overnight. Admitted with chest discomfort and new ECG changes. Echocardiographic findings demonstrate improved ejection fraction when compared to his most recent study performed in the postoperative setting. Cardiac enzymes are undetectable. Review of Systems Review of Systems: All systems reviewed & are unremarkable except as noted in Subjective Physical Exam Constitutional: WD/WN, vitals as above Neck: trachea midline, no thyromegaly Respiratory: normal respiratory effort, lungs clear to auscultation Cardiovascular: RRR, no murmur, no edema Vessels: femoral pulses present and radial pulses present Gastrointestinal (Abdomen): Inspection/Auscultation: abdomen normal to inspection and normal bowel sounds; abdomen not distended Percussion/Palpation: abdomen soft; abdomen nontender, no guarding and abdomen not rigid Neurologic: CN's II-XI intact bilaterally and moves all extremities; no focal motor deficits Motor/Sensory: no tremor Results & Data ([facility]) Vital Signs (Past 12 Hours) Vital Signs Temp Pulse Pulse Resp BP BP Pulse Ox 05/23/21 08:50 36.8 C 56 L 16 114/76 97 05/23/21 03:25 36.7 C 53 L 18 110/70 98 05/23/21 00:17 55 L
[2021-05-23] MEDS ORDERED: fentaNYL citrate 100 MCG/2 ML VIAL ONE (10:48)
[2021-05-23] MEDS ORDERED: niCARdipine HCL INJ 2.5 MG/ML 10 ML AMP ONE (10:48)
[2021-05-23] MEDS ORDERED: HEPARIN (PORCINE) 1000 UNIT/ML 10 ML (CATH LAB USE ONLY) ONE (10:48)
[2021-05-23] MEDS ORDERED: NITROGLYCERIN/D5W 100MCG/ML 20ML SYR ONE (10:49)
[2021-05-23] MEDS ORDERED: MIDAZOLAM HCL 1 MG/ML 2ML VIAL ONE ×2 (10:49→11:32)
--- NOTE | 2021-05-23 11:39 | Post Anesthesia Assessment ---
Date of Service May 23, 2021 Post Sedation Assessment Vital Signs Temp Pulse Pulse Resp BP BP Pulse Ox 05/24/21 07:40 36.7 C 59 L 19 104/68 97 05/24/21 04:37 37 C 58 L 18 108/69 99 05/24/21 02:16 69 05/23/21 23:21 36.5 C 82 18 120/72 98 05/23/21 20:15 36.7 C 63 14 92/57 L 95 05/23/21 18:39 65 18 98/56 L 97 05/23/21 17:39 61 18 108/63 98 05/23/21 16:39 77 18 133/69 98 05/23/21 15:39 58 L 18 111/70 96 05/23/21 14:39 55 L 18 102/62 97 05/23/21 14:09 60 18 104/62 96 05/23/21 13:39 53 L 18 109/66 97 05/23/21 13:24 59 L 18 108/69 99 05/23/21 13:09 36.5 C 61 18 112/62 98 05/23/21 12:50 61 16 106/70 98 05/23/21 12:35 55 L 20 101/74 99 05/23/21 08:50 36.8 C 56 L 16 114/76 97 Recovery Score Respiration: Deep Breath/Cough Circulation: +/-20% PreAnes Value Consciousness: Arouseable (by name) Oxygen Saturation: O2 needed for >90% Discharge Sedation Level of Care: Phase I Post Sedation Plan On clinical assessment, the patient appears to have tolerated the sedation without complications. Patient is recovering as anticipated. Patient will continue to be monitored by nursing and may be discharged when sedation discharge criteria are met per below protocol. Upon Completions of procedure up to 15 minutes continue every 5 minute vital signs and the P.A.R. score; then discharge to a Phase I or Fast Track to Phase II per the following guidelines: * Discharge Patient to appropriate Phase II area if PAR is 8 or greater or return to pre- procedure baseline. The post - procedure orders will be as directed. * If PAR score is less than 8 or not return to pre-procedure baseline then patient will follow Phase I monitoring till PAR is reached for Phase II. The Phase I may be done in procedure room or may call to secure a Phase I area. * If naloxone or flumazenil are used for reversal, hold in Phase I for continued monitoring from when last reversal dose was given for a minimum of 60 minutes or longer pending the nurse and/or physician discretion of patient condition before discharge to Phase II. Please call the Sedation Physician to re-evaluate and complete post-note for discharge to Phase II area. Do NOT discharge from procedure sedation or Phase 1 until post- sedation evaluation note is complete by procedure /sedation MD Sedation Discharge Instructions to be given to the patient at discharge to home.
--- NOTE | 2021-05-23 11:44 | Cardiac Catheterization ---
Cardiac Cath Procedure Full Procedure Date May 23, 2021 Pre-Procedure Diagnosis Pre-Procedure Diagnosis: Acute Coronary Syndrome AUC Score AUC Score: 8 Post-Procedure Diagnosis Post-Procedure Diagnosis: Severe CAD and Cardiothoracic Finding (Severe distal DELGADO stenosis) Procedure(s) Performed Procedure(s) Performed: Coronary Angiography and Left Heart Cath Media Promoter Edmundo Jean DO Gus[employer] Ripper(s) Showers RN Estimated Blood Loss Estimated Blood Loss: 5cc Medication(s) Medication(s): Fentanyl, Lidocaine 1% and Versed Summary of Findings Severe distal left main stenosis. Severe proximal right coronary artery stenosis. Severe stenosis of the distal DELGADO anastomosis of the LAD. Widely patent saphenous vein graft to obtuse marginal. Hemodynamics Rest Ao:: 106//57/74 Final Ao: 96/50/62 LV: N/A Recommendations Recommendations: PCI without planned CABG Radiation Exposure (mGy) 875 Contrast (mls) 100 Fluids (cc crystalloids) Fluids (cc crystalloids): 351 Nss Drains Drains: N/A Anesthesia Moderate sedation. Start 1057. End 1140. Sedation monitor VALERY Navarro I attest to the content of the Intraoperative Record and any orders documented therein. Any exceptions are noted below. ACC Data: Woodworking Machine Feeder Cardiac Status Clinical evaluation leading to the procedure CAD Presenation: Unstable angina Heart Failure: No Coronary Anatomy Dominant: Co-Dominant Left Main (% Stenosis): Distal (80%) LAD (% Stenosis): Proximal (80%), Mid (80%) and Distal (Atretic vessel with poor filling distal to DELGADO anastomosis.) D1 (% Stenosis): Ostial (30%) Circumflex (% Stenosis): Ostial (80%) and Proximal (60%) OM1 (% Stenosis): Proximal (20%) L PL1 (% Stenosis): Normal L PL2 (% Stenosis): Normal L PDA (% Stenosis): Normal RCA (% Stenosis): Proximal (80%) R PDA (% Stenosis): Normal (1mm vssel) R PL1 (% Stenosis): Normal (small, 1mm vessel) Grafts - LAD (%): Distal (90%) Grafts - Circumflex (%): Normal Diagnostic Physicians Name: Edmundo Jean DO Closure Device Recommendations: PCI without planned CABG Intraprocedure Events Significant Disection: No Perforation: No
[2021-05-23] MEDS ORDERED: CLOPIDOGREL BISULFATE 300 MG TAB ONE (12:31)
--- NOTE | 2021-05-23 12:46 | Post Anesthesia Assessment ---
Date of Service May 23, 2021 Post Sedation Assessment Vital Signs Temp Pulse Pulse Resp BP BP Pulse Ox 05/23/21 08:50 98.2 F 56 L 16 114/76 97 05/23/21 03:25 98.1 F 53 L 18 110/70 98 05/23/21 00:17 55 L 05/22/21 22:17 98.6 F 58 L 18 104/60 97 05/22/21 19:30 98.2 F 72 20 121/75 97 05/22/21 15:17 98.1 F 56 L 18 118/78 100 Recovery Score Activity: Moves 4 extremities Respiration: Deep Breath/Cough Circulation: +/-20% PreAnes Value Consciousness: Fully Awake Oxygen Saturation: O2 needed for >90% Discharge Sedation Level of Care: Fast Track Phase II Post Sedation Plan On clinical assessment, the patient appears to have tolerated the sedation without complications. Patient is recovering as anticipated. Patient will continue to be monitored by nursing and may be discharged when sedation discharge criteria are met per below protocol. Upon Completions of procedure up to 15 minutes continue every 5 minute vital signs and the P.A.R. score; then discharge to a Phase I or Fast Track to Phase II per the following guidelines: * Discharge Patient to appropriate Phase II area if PAR is 8 or greater or return to pre- procedure baseline. The post - procedure orders will be as directed. * If PAR score is less than 8 or not return to pre-procedure baseline then patient will follow Phase I monitoring till PAR is reached for Phase II. The Phase I may be done in procedure room or may call to secure a Phase I area. * If naloxone or flumazenil are used for reversal, hold in Phase I for continued monitoring from when last reversal dose was given for a minimum of 60 minutes or longer pending the nurse and/or physician discretion of patient condition before discharge to Phase II. Please call the Sedation Physician to re-evaluate and complete post-note for discharge to Phase II area. Do NOT discharge from procedure sedation or Phase 1 until post- sedation evaluation note is complete by procedure /sedation MD Sedation Discharge Instructions to be given to the patient at discharge to home.
--- NOTE | 2021-05-23 12:54 | Cardiac Catheterization ---
ACC Data: [facility] Cardiac Status Clinical evaluation leading to the procedure CAD Presenation: Unstable angina Anginal Classification: CCS IV Heart Failure: No Cardiogenic Shock within 24 Hours: No Cardiac Arrest within 24 Hours: No Imaging Studies Past 6 Months: Yes Stress Studies Past 6 Months: Yes Stress Echocardiogram: Yes - Positive and Risk/Extent of Ischemia (High) Diagnostic Physicians Name: Phil Reyes MD Status: Elective Closure Device Percutaneous Entry Location: Femoral Closure Device: Angio-Seal Recommendations: PCI without planned CABG PCI Indication: Unstable Angina Lesion Segment Name: DELGADO to LAD anastomosis Culprit Artery: Yes Stenosis Prior to Rx (%): 95 Chronic Total Occlusion: No IVUS: No FFR: No Pre-Procedure [id number] Flow: 2 Previously Treated Lesion: No Lesion Complexity: High/C Lesion Length (mm): 15 Thrombus Present: No Bifurcation Lesion: Yes Guidewire Across Lesion: Stenosis Post-Procedure (%): 0 Post-Procedure URSZULA Flow: 3 Devices(s) Deployed: Yes Yes Intraprocedure Events Significant Disection: No Perforation: No Cardiac Cath Procedure Full Procedure Date May 23, 2021 Pre-Procedure Diagnosis Pre-Procedure Diagnosis: Acute Coronary Syndrome AUC Score AUC Score: 8 Post-Procedure Diagnosis Post-Procedure Diagnosis: Severe CAD Procedure(s) Performed Procedure(s) Performed: Coronary Angiography, Drug Eluting Stent and Bypass Graft Angiography Clinic Administrator Phil Reyes MD Mapping Supervisor(s) Showers RN Estimated Blood Loss Estimated Blood Loss: 10 Medication(s) Medication(s): Clopidogrel, Fentanyl, Heparin, Lidocaine 1%, Nicardipine, Nitroglycerin and Versed Summary of Findings Indication: Unstable angina. Post two-vessel CABG last month. Access: 6 Fr right common femoral artery Catheters: JR4 guide Findings: For full details of patient's coronary angiography please see cath report dictated by Dr. Jean. Briefly, patient found to have a severe stenosis at the DELGADO to mid LAD anastomosis. Decision to proceed with PCI. -- PCI -- Antithrombotic therapy: Heparin, clopidogrel Procedure: DELGADO cannulated with JR4 guide and telescope support catheter [employer] 50 wire passed across anastomotic lesion into distal vessel Anastomosis lesion predilated with 2.0 compliant balloon Dilated lesion stented with 2.5 x 18 mm Nav from DELGADO across anastomosis into mid LAD Stent post-dilated with 2.75 noncompliant balloon IC vasodilators administered for spasm Post procedure URSZULA 3 flow, stent well expanded with minimal residual stenosis and no apparent cardiac complications. Arterial Closure: Angio-Seal Summary: 1. Successful PCI of DELGADO to LAD anastomosis with single drug-eluting stent (2.5 x 18 mm Nav; postdilated with 2.75 NC). Recommendations: To PCU for continued monitoring Reloaded with clopidogrel in [facility] Continue dual-antiplatelet therapy for at least 1 year. Consult cardiac Rehab Hemodynamics Rest Ao:: 96/50/62 Final Ao: 94/53/71 LV: -- Recommendations Recommendations: PCI without planned CABG Specimens Specimens: None Radiation Exposure (mGy) 1824 Contrast (mls) 140 Drains Drains: N/A Anesthesia Moderate sedation. Start 1140. End 1236. Sedation monitor VALERY Navarro Procedural Complication(s) None Disposition PCU I attest to the content of the Intraoperative Record and any orders documented therein. Any exceptions are noted below. [facility] Card Cath Procedure Codes Moderate Sedation Procedure 1: Sedation/Anesthesia: 81971 Mod Sedation by the same physician; Ea [id number] Minutes Stenting Procedure 1: Cardiovascular Stent Procedures: 40147 Perc tranluminal revascularization of or throughout CABG PG Care Time/CCT Total # of Minutes Spent Total Time Spent with Patient: Total time spent is greater than 50% in coordination of care (as documented) at patient's floor/unit and/or counseling patient:
[2021-05-23] MEDS ORDERED: SODIUM CHLORIDE 0.9% 1000ML 1,000 ML IV SCH (13:00)
--- NOTE | 2021-05-23 13:09 | Electrocardiogram Report ---
Test Reason : Blood Pressure : / mmHG Vent. Rate : 059 BPM Atrial Rate : 059 BPM P-R Int : 150 ms QRS Dur : 104 ms QT Int : 458 ms P-R-T Axes : 056 011 092 degrees QTc Int : 453 ms Sinus bradycardia Possible Left atrial enlargement Inferior ST abnormality Abnormal ECG When compared with ECG of 21-MAY-2021 20:54, Vent. rate has decreased BY 32 BPM Confirmed by Jarred Esquivel ([id number]) on 05/23/2021 1:08:57 PM Referred By: REFERRED SELF Confirmed By:Jarred Esquivel
[2021-05-23] MEDS: cefTRIAXone SODIUM 2,000 MG in DEXTROSE 5% 50 ML IV SCH (17:07)
--- NOTE | 2021-05-23 18:23 | Hospitalist Progress Note ---
Date of Service May 23, 2021 Assessment & Plan (1) Chest pain: (2) CAD, multiple vessel: (3) S/P CABG x 2: Plan: Patient is a 65 yr male with H/O CAD with recent 2vCABG on 05/02/21 at [facility] [place], history of tobacco use and other medical problems listed below presenting with intermittent CP x 4 days. Unstable Angina H/O Recent 2v CABG at [facility] [place] 05/02/21 S/P Successful PCI of DELGADO to LAD anastomosis with single drug-eluting stent on 05/23/[address] and T wave abnormality, consider anterolateral ischemia. When compared with EKG from April, inverted T waves have replaced nonspecific T wave abnormality in lateral leads Troponin negative CXR with interval midline sternotomy. Interval development of wispy left midlung zone opacities, statistically atelectatic although an infectious/inflammatory processes could appear similar ECHO: There is hypo to akinesis of the distal septum and severe hypokinesis of the inferior posterior myocardium. EF 5 to 60%. No significant valvular pathology. Appreciate Cardiology Input Continue aspirin, Plavix, metoprolol, Statin IV Heparin discontinued Gentle IV fluids (4) Pneumonia: Plan: Acute Bronchitis Recent sinus congestion, has been on Augmentin for 2 days -CT chest:There are few scattered linear densities within the lungs most pronounced within the left upper lobe. These are nonspecific but favor scarring/atelectasis. A pneumonia could also have a similar appearance but is considered less likely. There are few scattered subcentimeter indeterminate pulmonary nodules with the largest in the right upper lobe measuring 4 mm. Please refer to the chart below for recommended follow-up. Trace left pleural effusion. Small calcified pleural plaques within the right hemithorax consistent with asbestos-related disease. -Sinus CT:The paranasal sinuses and mastoid air cells are clear. -Continue Rocephin and doxy Day #5 Continue Flonase (5) Mood disorder: Plan: Continue Celexa (6) Dyslipidemia, goal LDL below 70: Plan: Increased to Atorvastatin 80mg (7) Tobacco use: Plan: Recent cessation DVT Px: SCDs for now Code status: FULL CODE Admission and Anticipated Discharge Date Admission Date: May 20, 2021 Subjective Patient is seen and examined at bedside Patient had Cardiac Cath this morning States feeling well after the cath Discussed with Cardiology today Denies chest pain, dyspnea, dizziness, nausea, abdominal pain Review of Systems Review of Systems: All systems reviewed & are unremarkable except as noted in HPI & below Physical Exam Physical Exam: Physical Exam: Vitals signs as noted above General Appearance:Moderately built and nourished, no apparent distress Head: normocephalic, Atraumatic Eyes: normal inspection, EOMI Neck: supple, Trachea midline Respiratory/Chest: Normal breath sounds, CTA, No accessory muscle use, +CABG scar Cardiovascular: S1, S2, + murmur Abdomen/GI:Soft, Non tender, Bowel sounds present Extremities/Musculoskeletal:normal inspection, no edema Neurologic/Psych:AAOX3, grossly no focal neurological deficits Skin: normal color, warm Results & Data Results & Data ([facility]) Vital Signs (Past 12 Hours) Vital Signs Temp Pulse Resp BP BP Pulse Ox 05/23/21 17:39 61 18 108/63 98 05/23/21 16:39 77 18 133/69 98 05/23/21 15:39 58 L 18 111/70 96 05/23/21 14:39 55 L 18 102/62 97 05/23/21 14:09 60 18 104/62 96 05/23/21 13:39 53 L 18 109/66 97 05/23/21 13:24 59 L 18 108/69 99 05/23/21 13:09 36.5 C 61 18 112/62 98 05/23/21 12:50 61 16 106/70 98 05/23/21 12:35 55 L 20 101/74 99 05/23/21 08:50 36.8 C 56 L 16 114/76 97 Laboratory Results [facility] 05/23/21 05:21 Sodium 141 Potassium 4.3 Chloride 109 H Carbon Dioxide 30 BUN 14 Creatinine 1.02 Glucose 95 Calcium 9.4
[2021-05-23] MEDS: CITALOPRAM 20 MG TAB PO SCH (19:52)
[2021-05-23] MEDS: ASPIRIN 81 MG ECTAB PO SCH (19:52)
[2021-05-23] MEDS: CLOPIDOGREL BISULFATE 75 MG TAB PO SCH (19:53)
[2021-05-24 07:41] LABS: Hematocrit (blood only) 38.8 % (42-52); Mean Corpuscular Hemoglobin 29.5 pg (25-34); Mean Corpuscular Hgb Conc 33.5 g/dL (32-36); Mean Corpuscular Volume 88.2 fL (80-100); Mean Platelet Volume 8.7 fL (7.4-10.4); Platelet Count 384 K/uL (130-400); RDW Standard Deviation 44.8 fL (36.4-46.3); White Blood Count 7.43 K/uL (4.8-10.8)
[2021-05-24] MEDS: DOCUSATE SODIUM 100 MG CAP PO SCH (07:56)
[2021-05-24] MEDS: DOXYCYCLINE HYCLATE 100 MG CAP PO SCH (07:57)
[2021-05-24] MEDS: METOPROLOL TARTRATE 25 MG TAB PO SCH (07:57)
[2021-05-24] MEDS: PANTOprazole 40 MG TAB PO SCH (07:57)
[2021-05-24] MEDS: FAMOTIDINE 10 MG TABLET PO SCH (07:57)
[2021-05-24] MEDS: CETIRIZINE HCL 10 MG TABLET PO SCH (07:57)
[2021-05-24] MEDS: ATORVASTATIN 40 MG TAB PO SCH (07:57)
[2021-05-24] MEDS: FLUTICASONE PROPIONATE NA SPR 16 GM BTL SCH (07:58)
[2021-05-24 08:09] LABS: BUN Creatinine Ratio 16.3 (10-20); Calcium 9.5 mg/dl (8.5-10.1); Creatinine Clr Calc Pharmacy 70.3 ml/min; Est GFR (African American) 91.8 ml/min; Est GFR (Non-African American) 79.2 ml/min; Potassium 4.3 mmol/L (3.5-5.1)
--- NOTE | 2021-05-24 11:41 | Cardiology Progress Note ---
Date of Service May 24, 2021 Assessment & Plan (1) Intermittent chest pain: (2) Abnormal electrocardiogram [ECG] [EKG]: (3) S/P CABG x 2: (4) CAD, multiple vessel: Plan: EKG performed today reveals sinus rhythm with T wave inversions in leads V1 to V4, and ongoing [address] segment elevation limited to lead III, unchanged compared to 05/22/2020. As suspected, it appeared that his exertional chest/jaw pain would be his anginal equivalent. Cardiac catheterization performed yesterday revealed significant stenosis at the anastomosis site of the internal mammary artery graft to the LAD. Specifically: Anastomosis lesion predilated with 2.0 compliant balloon Dilated lesion stented with 2.5 x 18 mm Nav from DELGADO across anastomosis into mid LAD Stent post-dilated with 2.75 noncompliant balloon Post procedure, flow into the ute LAD distal to the anastomosis was much improved as well as improved retrograde LAD. I have discontinued his antibiotics, as I do not think his presentation in retrospect was due to sinus infection or pneumonia. Patient is stable for discharge today on medications to include: Aspirin 81 mg daily Clopidogrel 75 mg daily metoprolol tartrate 25 mg two times per day Furosemide 40 mg by mouth daily (resumed tomorrow) Potassium chloride 10 mEq daily Atorvastatin 80 mg daily (replaces simvastatin 40 mg daily). -No ACEI / or ARB started at BP is relatively well controlled, and LVEF> 40%. -Candidacy for this medication will be revisited as outpatient. Initially been scheduled to see Dr. Johnson in our office today, but obviously is not going to make that appointment. I therefore requested a follow-up visit with me in the range of 1 to [address] [facility] or [facility]. Admission and Anticipated Discharge Date Admission Date: May 20, 2021 Subjective Patient seen in cardiology follow-up. He notes feeling well. He ambulated multiple laps in the hallway today, with no symptoms suggestive of angina induced. He denies any chest pain, jaw pain, or tooth pain. Telemetry reveals sinus rhythm in the range of 50 to 60 bpm at rest. Review of Systems Review of Systems: All systems reviewed & are unremarkable except as noted in HPI & below Physical Exam Physical Exam: Temp Pulse Resp BP Pulse Ox 36.7 C 59 L 19 104/68 97 05/24/21 07:40 05/24/21 07:40 07/20/21 07:40 05/24/21 07:40 05/24/21 07:40 Constitutional: WD/WN, vitals as above Respiratory: normal respiratory effort, lungs clear to auscultation Cardiovascular: RRR, no murmur, no edema Gastrointestinal (Abdomen): normal bowel sounds, soft, nontender, no hepatosplenomegaly Neurologic: PERRL, EOMI, accommodation nl, no face palsy, no dysarthria Results & Data ([facility]) Vital Signs (Past 12 Hours) Vital Signs Temp Pulse Pulse Resp BP BP Pulse Ox 05/24/21 07:40 36.7 C 59 L 19 104/68 97 05/24/21 04:37 37 C 58 L 18 108/69 99 05/24/21 02:16 69 Laboratory Results CBC 05/24/21 Range/Units 07:15 WBC 7.43 (4.8-10.8) K/uL RBC 4.40 L (4.7-6.1) M/uL Hgb 13.0 L (14.0-18.0) g/dL Hct 38.8 L (42-52) % Plt Count 384 (130-400) K/uL Comprehensive Metabolic Panel 05/24/21 Range/Units 07:15 Sodium 140 (136-145) mmol/L Potassium 4.3 (3.5-5.1) mmol/L Chloride 108 H (98-107) mmol/L Carbon Dioxide 27 (21-32) mmol/L BUN 16 (7-18) mg/dl Creatinine 1.00 (0.6-1.4) mg/dl Glucose 84 (70-99) mg/dl Calcium 9.5 (8.5-10.1) mg/dl Intake and Output 05/23/21 05/24/21 05/24/21 22:59 06:59 14:59 Intake Total 1430 / 1548.750 100 / 1548.750 Output Total 350 / 350 Balance 1080 / 1198.750 100 / 1198.750 Intake: IV 1070 / 1088.750 Sodium Chloride 0.9% 1000ML 1, 1000 / 1000 000 ml @ 75 mls/hr IV .[id number] [facility] Rx#:[id number] cefTRIAXone SODIUM 2,000 mg In 70 / 70 Dextrose 5% 50 ml @ 100 mls/hr IV Q24H [facility] Rx#:[id number] Oral 360 / 460 100 / 460 Output: Urine 350 / 350 Other: # Unmeasured Voids 2 Weight 77.8 kg Weight Measurement Method Built in [facility]
[2021-05-24] MEDS ORDERED: HYDROCORTISONE 1% CRM 30 GM TUBE EXT SCH (11:45)
--- NOTE | 2021-05-24 11:46 | Hospitalist Progress Note ---
Date of Service May 24, 2021 Assessment & Plan (1) Chest pain: (2) CAD, multiple vessel: (3) S/P CABG x 2: Plan: Patient is a 65 yr male with H/O CAD with recent 2vCABG on 05/02/21 at [facility] [place], history of tobacco use and other medical problems listed below presenting with intermittent CP x 4 days. Unstable Angina H/O Recent 2v CABG at [facility] [place] 05/02/21 S/P Successful PCI of DELGADO to LAD anastomosis with single drug-eluting stent on 05/23/[address] and T wave abnormality, consider anterolateral ischemia. When compared with EKG from April, inverted T waves have replaced nonspecific T wave abnormality in lateral leads Troponin negative CXR with interval midline sternotomy. Interval development of wispy left midlung zone opacities, statistically atelectatic although an infectious/inflammatory processes could appear similar ECHO: There is hypo to akinesis of the distal septum and severe hypokinesis of the inferior posterior myocardium. EF 5 to 60%. No significant valvular pathology. Appreciate Cardiology Input Continue aspirin, Plavix, metoprolol, Statin IV Heparin discontinued Received IV fluids Needs follow up with Cardiology upon discharge (4) Pneumonia: Plan: Acute Bronchitis Recent sinus congestion, has been on Augmentin for 2 days -CT chest:There are few scattered linear densities within the lungs most pronounced within the left upper lobe. These are nonspecific but favor scarring/atelectasis. A pneumonia could also have a similar appearance but is considered less likely. There are few scattered subcentimeter indeterminate pulmonary nodules with the largest in the right upper lobe measuring 4 mm. Please refer to the chart below for recommended follow-up. Trace left pleural effusion. Small calcified pleural plaques within the right hemithorax consistent with asbestos-related disease. -Sinus CT:The paranasal sinuses and mastoid air cells are clear. -Received Rocephin and doxy for 5 days Continue Flonase (5) Mood disorder: Plan: Continue Celexa (6) Dyslipidemia, goal LDL below 70: Plan: Increased to Atorvastatin 80mg (7) Tobacco use: Plan: Recent cessation DVT Px: SCDs for now Code status: FULL CODE Admission and Anticipated Discharge Date Admission Date: May 20, 2021 Subjective Patient is seen and examined at bedside Doing well No new complaints Eager to get discharged Denies chest pain, dyspnea, dizziness, nausea, abdominal pain Review of Systems Review of Systems: All systems reviewed & are unremarkable except as noted in Subjective Physical Exam Physical Exam: Physical Exam: Vitals signs as noted above General Appearance:Moderately built and nourished, no apparent distress Head: normocephalic, Atraumatic Eyes: normal inspection, EOMI Neck: supple, Trachea midline Respiratory/Chest: Normal breath sounds, CTA, No accessory muscle use, +CABG scar Cardiovascular: S1, S2, + murmur Abdomen/GI:Soft, Non tender, Bowel sounds present Extremities/Musculoskeletal:normal inspection, no edema Neurologic/Psych:AAOX3, grossly no focal neurological deficits Skin: normal color, warm Results & Data Results & Data ([facility]) Vital Signs (Past 12 Hours) Vital Signs Temp Pulse Pulse Resp BP BP Pulse Ox 05/24/21 07:40 36.7 C 59 L 19 104/68 97 05/24/21 04:37 37 C 58 L 18 108/69 99 05/24/21 02:16 69 Laboratory Results Short CBC 05/24/21 Range/Units 07:15 WBC 7.43 (4.8-10.8) K/uL Hgb 13.0 L (14.0-18.0) g/dL Hct 38.8 L (42-52) % Plt Count 384 (130-400) K/uL BMP 05/24/21 07:15 Sodium 140 Potassium 4.3 Chloride 108 H Carbon Dioxide 27 BUN 16 Creatinine 1.00 Glucose 84 Calcium 9.5
--- NOTE | 2021-05-24 12:06 | Discharge Summary ---
Date of Service May 24, 2021 Admission HPI Per Admitting Provider This is a 65yo M with a PMH of CAD with recent 2vCABG on 05/02/21 at [facility], history of tobacco use and other medical problems listed below presenting with intermittent CP x 4 days. Was discharged home from [facility] on 04/28/21 and had been feeling well up until a few days ago, when he began to feel more fatigued and has been sleeping more during the day. Endorses intermittent chest pain over the past week both at rest and while walking x 4 days. Episodes start with pain in teeth followed by tightness in chest with radiation to bilateral arms. Episodes last for approximately 5 minutes. Associated with dry cough. Longest epsisode occurred at 0400 this morning and woke patient from sleep. Pain was similar in character but lasted 15 minutes. Took an oxycodone and was able to fall back asleep. Pain has not recurred since. Chest pain is exacerbated when lying flat. Endorsing sinus pain and congestion. Started on Augmentin 2 days ago for sinus congestion. Denies fevers. No lightheadedness, visual changes, palpitations, S OB, nausea, vomiting, abdominal pain, dysuria or constipation. No redness, warmth or drainage around healing incisions. Endorsing diarrhea for last day but no episodes since early this morning. Taking all medications as prescribed. Admission Exam Per Admitting Provider Physical Exam: Vitals signs as noted above General Appearance:Moderately built and nourished, no apparent distress Head: normocephalic, Atraumatic Eyes: normal inspection, EOMI, PERRL Neck: supple, Trachea midline Respiratory/Chest: Normal breath sounds, CTA, No accessory muscle use, +CABG scar Cardiovascular: S1, S2, No murmur Abdomen/GI:Soft, Non tender, Bowel sounds present Extremities/Musculoskeletal:normal inspection, no edema Neurologic/Psych:AAOX3, grossly no focal neurological deficits Skin: normal color, warm Principal Diagnosis Unstable angina Acute Bronchitis Discharge Data Allergies Allergy/AdvReac Type Severity Reaction Status Date / Time No Known Allergies Allergy Verified 05/19/21 14:57 Consultations 05/19/21 14:23 ED Decision to Admit Stat 05/19/21 20:44 Consult Cardiology Routine 05/23/21 12:55 Consult Cardiac Rehabilitation Routine Procedures Performed Operation Date: 05/23/21 10:45 Actual Procedures p Cath, Cors with Grafts (no LV) - DO laquita Garza Cineradiography w/Routine Exam - DO laquita Garza Drug Eluding Stent, SVG/SUZANNE, A - Soy Reyes MD s Placement Art Occlusive Device - Soy Reyes MD Ordered Studies 05/19/21 17:17 CT chest diagnostic wo con Routine 05/21/21 13:11 CT sinus w con Urgent 05/23/21 10:47 CL Cath Imgs for PACS use only Routine Hospital Course (1) Chest pain: (2) CAD, multiple vessel: (3) S/P CABG x 2: Patient is a 65 yr male with H/O CAD with recent 2vCABG on 05/02/21 at [facility], history of tobacco use and other medical problems listed below presenting with intermittent CP x 4 days. Unstable Angina H/O Recent 2v CABG at [facility] 05/02/21 S/P Successful PCI of DELGADO to LAD anastomosis with single drug-eluting stent on 05/23/[address] and T wave abnormality, consider anterolateral ischemia. When compared with EKG from April, inverted T waves have replaced nonspecific T wave abnormality in lateral leads Troponin negative CXR with interval midline sternotomy. Interval development of wispy left midlung zone opacities, statistically atelectatic although an infectious/inflammatory processes could appear similar ECHO: There is hypo to akinesis of the distal septum and severe hypokinesis of the inferior posterior myocardium. EF 5 to 60%. No significant valvular pathology. Appreciate Cardiology Input Continue aspirin, Plavix, metoprolol, Statin IV Heparin discontinued Received IV fluids Needs follow up with Cardiology upon discharge (4) Pneumonia: Acute Bronchitis Recent sinus congestion, has been on Augmentin for 2 days -CT chest:There are few scattered linear densities within the lungs most pronounced within the left upper lobe. These are nonspecific but favor scarring/atelectasis. A pneumonia could also have a similar appearance but is considered less likely. There are few scattered subcentimeter indeterminate pulmonary nodules with the largest in the right upper lobe measuring 4 mm. Please refer to the chart below for recommended follow-up. Trace left pleural effusion. Small calcified pleural plaques within the right hemithorax consistent with asbestos-related disease. -Sinus CT:The paranasal sinuses and mastoid air cells are clear. -Received Rocephin and doxy for 5 days Continue Flonase (5) Mood disorder: Continue Celexa (6) Dyslipidemia, goal LDL below 70: Increased to Atorvastatin 80mg (7) Tobacco use: Recent cessation DVT Px: SCDs for now Code status: FULL CODE Total Time Total Time Spent Total Time Spent (In Minutes): 45 minutes Discharge Plan Discharge Items Patient Disposition: Home - Self-Care Reason For Visit: CHEST PAIN Discharge Diagnosis: Unstable angina Acute Bronchitis Activity: Per Instructions section Exercise/Sports: Wait until after follow-up appointment Non-emergency contact: Primary Care Provider and [employer] Call non-emergency contact if: you have any medication questions, your symptoms worsen, your pain is not controlled, your pain is concerning for you, you have a fever, your wound has increased redness, your wound has increased drainage and your wound pain has increased Follow-up/Referrals: Tamir Kim DO [[employer]] - Eva Patino PA-C [Primary Care Provider] - 05/30/21 11:20 am (Date & Time 05/30/2021 11:20 AM Provider Valerie Yang MD Department Family Medicine [facility] ) Diet: Heart Healthy Addtl Attending Provider Instructions: Follow-up with your primary care physician Eva Patino PA-C in 1 week 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 Kim in 2-3 weeks --Your Omeprazole is changed to pantoprazole as omeprazole has interaction with clopidogrel decreasing its effectiveness. --Your simvastatin is changed to atorvastatin 80 mg daily as recommended by your ramp and cargo supervisor. --Continue Augmentin for 3 more days as prescribed and stop. Further recommendations as per your primary care physician. --Can start taking furosemide 40 mg daily starting tomorrow. Seek immediate medical attention if your symptoms reoccur or worsen Please take all medications as instructed on discharge list below. Please call if you have any questions or problems. You can reach a [facility] hospitalist on duty at [facility] 24 hours a day by calling [phone] Home Care: * Take your medications exactly as directed. Don't skip doses. * Remember that recovery after a heart attack takes time. Plan to rest for at lease 4-8 weeks while you recover. Then return to normal activity when your doctor says it's okay. * Ask your doctor about joining a heart rehabilitation program. * Tell your doctor if you are feeling depressed. Feelings of sadness are common after a heart attack, but it is important that you speak to someone if you are feeling overwhelmed by these feelings. * If you are having chest pain, call 911 for an ambulance. Do NOT drive yourself to the hospital. * Ask your family members to learn CPR. * Learn to take your own blood pressure and pulse. Keep a record of your results. Ask your doctor when you should seek emergency medical attention. He or she will tell you which blood pressure reading is dangerous. Lifestyle Changes: * Maintain a healthy weight. Get help to lose any extra pounds. * Cut back on salt. * Limit canned, dried, packaged, and fast foods. * Don't add salt to your food. * Season foods with herbs instead of salt when you cook. * Break the smoking habit. Enroll in a stop-smoking program to improve your chances of success. * Limit fatty foods. * Ask your doctor about having your lipid levels checked regularly. * Build up your activity according to your doctor's recommendation. * Ask your doctor when it's okay to resume sexual activity. * Tell your doctor about any erectile dysfunction (ED) medication you are taking. Some ED medications are not safe if you take certain heart medications. * Try to manage stress. Follow Up: It is important for you to keep your follow up appointments with your medical provider. 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 ACTIVITY RECOMMENDATIONS: It is common to feel weak and fatigue for a few days. * Do not drive or operate any motorized equipment for the next three days. * Limit stair usage (2 or 3 trips a day only) for the next three days. * Do not lift anything heavier than 10 pounds for the next three days. * Do not engage in vigorous exercise or any sports for the next five days. * You may shower the day after your procedure, but do not immerse the area for three days. Cleanse the site gently with soap and water. SPECIAL CARE INSTRUCTIONS: * You may replace the pressure dressing or band-aid the morning after the procedure. * After your procedure, it is normal to have a small bruise or small lump at the site. Examine your site daily for any change in the bruise or lump, redness, swelling, drainage or numbness. Notify your doctor if any change. BLEEDING: * If there is a small amount of bleeding at the site, lie down and apply firm pressure with a clean cloth for ten minutes. When the bleeding stops, lie quietly keeping the procedure limb straight for six hours. Notify your doctor as soon as possible. * If the bleeding does not stop after ten minutes or if there is a large amount of bleeding or spurting, call 911 immediately. Continue to lie down and hold firm pressure until help arrives. SKIN IRRITATION: * You may experience some redness and/or swelling in the area where radiation was administered. If any skin irritation occurs, please contact your family physician. FOLLOW UP VISIT: Keep any scheduled doctor appointments. Pending Studies at Discharge: No Stand-Alone Forms: My [facility], Smoking Cessation Medications and DC Order Prescriptions: New atorvastatin 40 mg Tablet 80 mg PO QAM Qty: 60 RF: 2 pantoprazole 40 mg Tablet,Delayed Release (Dr/Ec) 40 mg PO QAM Qty: 30 RF: 2 Continued citalopram 10 mg tablet 10 mg PO PM RF: 0 furosemide 40 mg tablet 40 mg PO QAM RF: 0 potassium chloride 10 mEq tablet extended release 10 meq PO DAILY RF: 0 clopidogrel 75 mg tablet 75 mg PO PM RF: 0 acetaminophen [Tylenol Extra Strength] 500 mg Tablet 1,000 mg PO Q6H PRN (Reason: Pain) RF: 0 docusate sodium 100 mg capsule 100 mg PO BID RF: 0 amoxicillin-pot clavulanate 875-125 mg tablet 1 tab PO BID RF: 0 oxycodone 5 mg tablet 5 mg PO Q4H PRN (Reason: Pain) RF: 0 aspirin 81 mg tablet,delayed release (DR/EC) 81 mg PO DAILY RF: 0 metoprolol tartrate 25 mg tablet 25 mg PO BID RF: 0 cetirizine 10 mg tablet 10 mg PO DAILY RF: 0 Discontinued omeprazole 40 mg capsule,delayed release(DR/EC) 40 mg PO QAM RF: 0 simvastatin 40 mg tablet 40 mg PO PM RF: 0 Discharge Orders: Discharge Order (Routine); Ordered 05/24/21 Ordered By: Enrique Vidal Admission Data Admit Date/Time: 05/20/21 18:39 Attending Provider: Enrique Vidal Admit Provider: Enrique Vidal Primary Care Provider: Eva Patino Other Providers: Enrique Vidal ; Lawrence English ; Alexandre Shahid [facility] Other Interventions: Discharge Summary Assessment (RN) Last Done: 05/24/21 12:14
--- NOTE | 2021-05-24 15:52 | Electrocardiogram Report ---
Test Reason : Blood Pressure : / mmHG Vent. Rate : 067 BPM Atrial Rate : 067 BPM P-R Int : 150 ms QRS Dur : 106 ms QT Int : 414 ms P-R-T Axes : 056 001 106 degrees QTc Int : 437 ms Normal sinus rhythm Inferior injury pattern T wave abnormality, consider anterolateral ischemia Abnormal ECG When compared with ECG of 22-MAY-2021 06:23, No significant change was found Confirmed by Jarred Esquivel ([id number]) on 05/24/2021 3:52:12 PM Referred By: REFERRED SELF Confirmed By:Jarred Esquivel
== END 2021-05-24 13:30 | disposition home health service (06) | DRG 247 ==
LOC: ED 11:38 → 2S 11:38
PROC: CLB.CCG (2021-05-23 10:45)